=== PATIENT | female | born 1960 | race Caucasian/White ===

== ENCOUNTER → 2019-11-17 12:21 | Outpatient (CLI) | payer OTHER, SELFPAY ==
--- NOTE | ~2019-11-17 | MM_ITS ---
EXAMINATION: MM screening carmen BI w rajan HISTORY: Screening mammogram TECHNIQUE: Craniocaudal and mediolateral oblique 3-D tomosynthesis images were obtained and synthetic 2-D images were generated. CAD analysis was submitted and interpreted. COMPARISON: 10/02/2018, 09/29/2017, 09/26/2016 bilateral digital screening mammogram examinations BREAST PARENCHYMAL COMPOSITION: There are scattered areas of fibroglandular density. FINDINGS: Occasional benign calcifications. There is no evidence of suspicious mass, calcification, o r architectural distortion to suggest malignancy in either breast. There has been no suspicious inter suresh change. IMPRESSION: 1. No mammographic evidence of malignancy. 2. Recommend routine screening mammography in one year. BI-RADS Category 1: Negative Reviewed, dictated and finalized at location A.
--- NOTE | ~2019-11-17 | DEXA_ITS ---
Bone Density Report Name: Alexa Christopher Age: 59 Sex: Female Ethnicity: White Date of : 1960 Indication: postmenopausal; screening for osteoporosis; parental hip fracture; asthma or emphysema; Referring Provider: MADISON, SANDEE Study: Bone densitometry was performed. Exam Date: November 17, 2019 Accession number: [id number] Bone Density: Region BMD T-score Z-score Classification AP Spine (L1-L4) 1.065 0.2 1.6 Normal Femoral Neck (Left) 0.770 -0.7 0.6 Normal Total Hip (Left) 1.046 0.9 1.8 Normal Femoral Neck (Right) 0.778 -0.6 0.7 Normal Total Hip (Right) 1.021 0.6 1.6 Normal Total Hip Mean 1.034 0.8 1.7 Normal World Health Organization criteria for BMD impression classify patients as: Normal (T-score at or above -1.0), Osteopenia (T-score between -1.0 and -2.5), or Osteoporosis (T-score at or below -2.5). 10-year Fracture Risk: FRAX not reported because: All T-scores for Spine Total, Hip Total, Femoral Neck at or above -1.0 Previous Exams: Region Exam Age BMD T-score BMD Change BMD Change Date g/cm2 vs Baseline vs Previous AP Spine(L1-L4) 11/17/2019 59 1.065 0.2 -0.001 -0.026 09/24/2015 55 1.091 0.4 0.024 0.024 07/02/2013 53 1.067 0.2 Total Hip(Left) 11/17/2019 59 1.046 0.9 0.055* 0.032 09/24/2015 55 1.014 0.6 0.023 0.023 07/02/2013 53 0.991 0.4 Total Hip(Right) 11/17/2019 59 1.021 0.6 0.000 0.009 09/24/2015 55 1.012 0.6 -0.009 -0.009 07/02/2013 53 1.021 0.6 *Denotes significance at 95% confidence level, LSC for AP Spine = 0.022 g/cm2, LSC for Total Hip = 0.027 g/cm2 Clinical Information Provided by Patient: Parent has had a hip fracture Smokes Has used the following medications: Vitamin D, Calcium Has the following medical conditions: Asthma or Emphysema Patient maximum height was 62 Menopause Age: 48 No regular weight bearing exercise Drinks caffeinated beverages Onset of menses at age 12 Number of children 0 Impression: The patient has normal bone mass. The patient has risk factors, including: parental hip fracture, smoking. No significant bone loss was observed. Discussion: BONE DENSITY IS ABOVE THE MINIMUM DESIRABLE LEVEL AT ALL SKELETAL SITES TESTED. This patient?s bone mineral density is above the minimum desirable level (T-score -1.0 or better) a
== END ==
PROVIDERS: PCP Family Medicine; Visit Provider Nurse Practitioner
DX: Z12.31 Encounter for screening mammogram for malignant neoplasm of breast (principal); Z78.0 Asymptomatic menopausal state
CPT/HCPCS: 77063; 77067; 77080

== ENCOUNTER 2019-12-10 08:29 | Outpatient (CLI) | payer OTHER, SELFPAY ==
[2019-12-10 08:58] LABS: Hematocrit 45.2 % (37.0-47.0); Hemoglobin 14.9 g/dL (12.0-15.0); Mean Corpuscular Hemoglobin 29.6 pg (26-34); Mean Corpuscular Volume 89.9 fl (80-100); Mean Platelet Volume 11.5 fl (7.4-10.4); Platelet Count Result 285 k/mm3 (150-375); Red Blood Count 5.03 M/mm3 (4.2-5.4); Red Cell Distribution Width 14.3 % (11.5-14.5); White Blood Count 12.6 K/mm3 (4.5-10.0)
[2019-12-10 09:27] LABS: Hemoglobin A1C 6.9 % (<5.7)
[2019-12-10 09:41] LABS: Creatinine Urine 71.6 mg/dL
[2019-12-10 09:56] LABS: Vitamin D 25 Hydroxy 50.1 ng/mL
[2019-12-10 10:11] LABS: MALB Creatinine Ratio < 8.4 mg/g (0-30); Microalbumin Urine Random < 6.0 mg/L (0-16.7)
[2019-12-10 19:00] LABS: Alanine Aminotransferase 22 U/L (4-35); Albumin Level 3.4 g/dL (3.5-5.1); Alkaline Phosphatase 126 U/L (38-126); Anion Gap 2 mmol/L (8-16); Aspartate Amino Transferase 24 U/L (14-36); Bilirubin,Total 0.5 mg/dL (0.2-1.3); Blood Urea Nitrogen 12 mg/dL (7-17); Calcium 9.5 mg/dL (8.4-10.2); Carbon Dioxide 36 mmol/L (22-30); Chloride 97 mmol/L (98-107); Cholesterol 135 mg/dL (0-200); Estimated Glomerular Filt Rate > 60; Glucose 112 mg/dL (65-105); HDL Direct 35 mg/dL; Sodium 135 mmol/L (137-145); Triglycerides 121 mg/dL (<150)
[2019-12-10 19:11] LABS: LDL Cholesterol Direct 87 mg/dL
[2019-12-10 19:49] LABS: Vitamin B12 > 1000.0 pg/mL (239-931)
== END 2019-12-10 08:30 | disposition home or self-care (01) ==
PROVIDERS: PCP Family Medicine; Visit Provider Family Medicine
DX: E78.2 Mixed hyperlipidemia (principal); E11.9 Type 2 diabetes mellitus without complications; E03.9 Hypothyroidism, unspecified; E55.9 Vitamin D deficiency, unspecified; R53.83 Other fatigue; Z98.84 Bariatric surgery status
CPT/HCPCS: 36415; 80053; 80061; 82043; 82306; 82607; 83036; 84443; 85027

== ENCOUNTER 2020-02-07 02:07 | Outpatient (CLI) | payer OTHER, SELFPAY ==
[2020-02-07 22:41] LABS: SARS-CoV-2 RNA PCR Negative
== END 2020-02-07 02:08 | disposition home or self-care (01) ==
LOC: ANHCOVIDDT 02:07
PROVIDERS: PCP Family Medicine; Visit Provider Internal Medicine Gastroenterology
DX: Z01.812 Encounter for preprocedural laboratory examination (principal)
CPT/HCPCS: 87635; C9803; U0003

== ENCOUNTER 2020-02-10 00:56 | Day surgery (SDC) | payer OTHER, SELFPAY ==
[2020-02-03 15:11] VITALS: BMI 37.0
[2020-02-10 11:40] VITALS: BP 147/81; PULSE 82; RESP 16; TEMP 36.4; O2SAT 97
--- NOTE | 2020-02-10 11:40 | WPDANESEPPF ---
Anes - Initial Pre Proc Eval Procedure: Operation Date: 02/10/20 12:45 Proposed Procedures p Esophagogastroduodenoscopy & Screening Colonoscopy - Emory Snyder MD Date/Time: 02/10/20 11:40 Surgeon: Emory Snyder MD Pre Op Diagnosis: DYSPHAGIA,GERD, NEOPLASM SCREENING Patient Data Age: 59 Gender: F Height: 5 ft 1 in Weight: 90 kg Last Vital Signs Temp 36.4 C 02/10/20 11:40 Pulse 82 02/10/20 11:40 Resp 16 02/10/20 11:40 BP 147/81 H 02/10/20 11:40 Pulse Ox 97 02/10/20 11:40 Allergies Allergy/AdvReac Type Severity Reaction Status Date / Time cephalexin Allergy Mild Hives Verified 02/10/20 11:39 Home Medications Medication Instructions Recorded Confirmed Type levocetirizine 5 mg tablet 5 mg PO DAILY #90 tablet 05/02/19 02/03/20 Rx ergocalciferol (vitamin D2) 1,250 50,000 unit PO WEEKLY #12 cap 07/26/19 02/03/20 Rx mcg (50,000 unit) capsule clobetasol 0.05 % topical cream 1 applic TOPICAL BID #60 gm 09/22/19 02/03/20 Rx nortriptyline 10 mg capsule 10 mg PO DAILY #90 cap 10/18/19 02/03/20 Rx albuterol sulfate 90 mcg/actuation 1 inhalation INHALATION Q4H 11/02/19 02/03/20 History aerosol inhaler hydrocodone 5 mg-acetaminophen 325 1 tablet PO Q8H PRN #150 tablet 11/02/19 02/03/20 Rx mg tablet fluticasone furoate 200 1 inhalation INHALATION DAILY 11/21/19 02/03/20 History mcg-vilanterol 25 mcg/dose inhalation powder buspirone 15 mg tablet See Rx Instructions .ROUTE 12/27/19 02/03/20 Rx .COMPLEX #270 tablet simvastatin 10 mg tablet 10 mg PO DAILY #90 tablet 12/27/19 02/03/20 Rx trazodone 50 mg tablet 50 mg PO .HS #90 tablet 12/27/19 02/03/20 Rx duloxetine 30 mg capsule,delayed See Rx Instructions .ROUTE 01/04/20 02/03/20 Rx release .COMPLEX #270 cap omeprazole 40 mg capsule,delayed 40 mg PO BID #90 cap 01/08/20 02/03/20 Rx release canagliflozin 300 mg tablet 300 mg PO DAILY #90 tablet 01/09/20 02/03/20 Rx dulaglutide 0.75 mg/0.5 mL See Rx Instructions .ROUTE 01/10/20 02/03/20 Rx subcutaneous pen injector .COMPLEX #2 syringe baclofen 10 mg tablet See Rx Instructions .ROUTE 01/20/20 02/03/20 Rx .COMPLEX #360 tablet sertraline 50 mg tablet See Rx Instructions .ROUTE 01/29/20 02/03/20 Rx .COMPLEX #90 tablet triamterene 75 See Rx Instructions .ROUTE 01/30/20 02/03/20 Rx mg-hydrochlorothiazide 50 mg tablet .COMPLEX #90 tablet ferrous sulfate [Iron (ferrous 325 mg PO DAILY 02/03/20 02/03/20 History sulfate)] levothyroxine 25 mcg tablet 25 mcg PO DAILY #90 tablet 02/09/20 02/10/20 Rx montelukast 10 mg tablet 10 mg PO DAILY #90 tablet 02/09/20 02/10/20 Rx Patient hx anesthesia problems: none Family hx anesthesia problems: none PMFSH Past Medical History Medical History Allergic rhinitis Anxiety Asthma Chronic low back pain without sciatica Colon cancer screening Diverticulosis of large intestine without perforation or abscess Fibromyalgia GERD (gastroesophageal reflux disease) Hypogammaglobulinemia Hypokalemia Hypothyroidism Immunodeficiency Iron deficiency Low ferritin Mixed hyperlipidemia Moderate episode of recurrent major depressive disorder Obstructive sleep apnea syndrome Psoriasis Recurrent acute suppurative otitis media without spontaneous rupture of left tympanic membrane Tobacco consumption Type 2 diabetes mellitus without complication, without long-term current use of insulin (07/05/15) Vitamin B12 deficiency Vitamin D deficiency Surgical History Surgical History H/O gastric bypass Family History Family History Mother Immunodeficiency Social History Social History Years smoked: 45 Smoking status: Current every day smoker Tobacco type: cigarettes Second hand tobacco smoke exposure: No S
[2020-02-10] MEDS: LACTATED RINGERS 1,000 ML 150 ML IV CONT (11:58)
[2020-02-10 11:59] LABS: Glucose Point of Care 100 (65-105)
--- NOTE | 2020-02-10 12:05 | PM.HPGS ---
History of Present Illness History of Present Illness Consent: Risks, benefits, and alternatives have been discussed and questions answered. Patient agrees to proceed with procedure. Chief complaint: DYSPHAGIA,GERD, NEOPLASM SCREENING Narrative: Alexa Christopher is a 59 year old female with bloating and reflux on omeprazole bid, remote history of gastric bypass, also needs screening colonoscopy. Review of Systems Constitutional: Constitutional: Denies headache(s) and Denies weakness Eyes: Eyes: Denies blurry vision ENT: Reports Normal hearing present, Denies headache(s) and Denies neck pain Cardiovascular: Cardiovascular: Denies chest pain and Denies dyspnea Respiratory: Respiratory: Denies dyspnea Gastrointestinal: Gastrointestinal: Reports no additional gastrointestinal complaints Genitourinary: Genitourinary: Denies dysuria Musculoskeletal: Musculoskeletal: Denies neck pain Integumentary/Breasts: Skin/Breast: Denies dry skin Neurologic: Reports Normal hearing present, Denies headache(s) and Denies weakness Psychiatric: Psychiatric: Denies anxiety Endocrine: Endocrine: Denies change in body appearance Hematologic/Lymphatic: Hematologic/Lymphatic: Denies easy bleeding Allergic/Immunologic: Allergic/Immunologic: Denies urticaria PMFSH Past Medical History Medical History Allergic rhinitis Anxiety Asthma Chronic low back pain without sciatica Colon cancer screening Diverticulosis of large intestine without perforation or abscess Fibromyalgia GERD (gastroesophageal reflux disease) Hypogammaglobulinemia Hypokalemia Hypothyroidism Immunodeficiency Iron deficiency Low ferritin Mixed hyperlipidemia Moderate episode of recurrent major depressive disorder Obstructive sleep apnea syndrome Psoriasis Recurrent acute suppurative otitis media without spontaneous rupture of left tympanic membrane Tobacco consumption Type 2 diabetes mellitus without complication, without long-term current use of insulin (07/05/15) Vitamin B12 deficiency Vitamin D deficiency Surgical History Surgical History H/O gastric bypass Family History Family History Mother Immunodeficiency Social History Social History Years smoked: 45 Smoking status: Current every day smoker Tobacco type: cigarettes Second hand tobacco smoke exposure: No Smoking end date: 02/23/13 Alcohol intake: never Substance use type: does not use Living arrangements: with family Spiritual care concerns: No Meds Home Medications and Allergies Home Medications Medication Instructions Recorded Confirmed Type levocetirizine 5 mg tablet 5 mg PO DAILY #90 tablet 05/02/19 02/03/20 Rx ergocalciferol (vitamin D2) 1,250 50,000 unit PO WEEKLY #12 cap 07/26/19 02/03/20 Rx mcg (50,000 unit) capsule clobetasol 0.05 % topical cream 1 applic TOPICAL BID #60 gm 09/22/19 02/03/20 Rx nortriptyline 10 mg capsule 10 mg PO DAILY #90 cap 10/18/19 02/03/20 Rx albuterol sulfate 90 mcg/actuation 1 inhalation INHALATION Q4H 11/02/19 02/03/20 History aerosol inhaler hydrocodone 5 mg-acetaminophen 325 1 tablet PO Q8H PRN #150 tablet 11/02/19 02/03/20 Rx mg tablet fluticasone furoate 200 1 inhalation INHALATION DAILY 11/21/19 02/03/20 History mcg-vilanterol 25 mcg/dose inhalation powder buspirone 15 mg tablet See Rx Instructions .ROUTE 12/27/19 02/03/20 Rx .COMPLEX #270 tablet simvastatin 10 mg tablet 10 mg PO DAILY #90 tablet 12/27/19 02/03/20 Rx trazodone 50 mg tablet 50 mg PO .HS #90 tablet 12/27/19 02/03/20 Rx duloxetine 30 mg capsule,delayed See Rx Instructions .ROUTE 01/04/20 02/03/20 Rx release .COMPLEX #270 cap omeprazole 40 mg capsule,delayed 40 mg PO BID #90 cap 01/08/20 02/03/20 Rx release canagliflozin 300 mg ta
[2020-02-10 12:55] VITALS: BP 96/45; PULSE 72; RESP 20; O2SAT 98
[2020-02-10 13:05] VITALS: BP 95/41; PULSE 80; RESP 22; O2SAT 99
== END 2020-02-10 13:27 | disposition home or self-care (01) ==
PROVIDERS: PCP Family Medicine; Visit Provider Internal Medicine Gastroenterology
PROC: 0DJ08ZZ Inspection of Upper Intestinal Tract, Via Natural or Artificial Opening Endoscopic (ICD-10-PCS; CPT 43235; principal; 2020-02-10 12:45)
DX: Z12.11 Encounter for screening for malignant neoplasm of colon (principal); K21.9 Gastro-esophageal reflux disease without esophagitis; K29.50 Unspecified chronic gastritis without bleeding; K64.8 Other hemorrhoids; R13.10 Dysphagia, unspecified; K44.9 Diaphragmatic hernia without obstruction or gangrene; K31.89 Other diseases of stomach and duodenum; Z79.51 Long term (current) use of inhaled steroids; F41.9 Anxiety disorder, unspecified; E03.9 Hypothyroidism, unspecified; K57.30 Diverticulosis of large intestine without perforation or abscess without bleeding; D80.1 Nonfamilial hypogammaglobulinemia; E87.6 Hypokalemia; D84.9 Immunodeficiency, unspecified; E61.1 Iron deficiency; F32.9 Major depressive disorder, single episode, unspecified; G47.33 Obstructive sleep apnea (adult) (pediatric); L40.9 Psoriasis, unspecified; E11.9 Type 2 diabetes mellitus without complications; Z79.4 Long term (current) use of insulin; J45.909 Unspecified asthma, uncomplicated; M79.7 Fibromyalgia; E66.9 Obesity, unspecified; Z68.37 Body mass index [BMI] 37.0-37.9, adult
CPT/HCPCS: 43239; 45378; 87635; 88305; C9803; J2704; J7120; U0003

== ENCOUNTER 2020-08-11 07:25 | Outpatient (CLI) | payer OTHER, SELFPAY ==
[2020-08-11 08:16] LABS: Hematocrit 47.8 % (37.0-47.0); Hemoglobin 15.3 g/dL (12.0-15.0); Mean Corpuscular Hemoglobin 29.1 pg (26-34); Mean Corpuscular Volume 90.9 fl (80-100); Mean Platelet Volume 11.7 fl (7.4-10.4); Platelet Count Result 289 k/mm3 (150-375); Red Blood Count 5.26 M/mm3 (4.2-5.4); Red Cell Distribution Width 14.1 % (11.5-14.5); White Blood Count 9.7 K/mm3 (4.5-10.0)
[2020-08-11 08:25] LABS: Alanine Aminotransferase 53 U/L (4-35); Albumin Level 4.2 g/dL (3.5-5.1); Alkaline Phosphatase 138 U/L (38-126); Anion Gap 5 mmol/L (8-16); Aspartate Amino Transferase 44 U/L (14-36); Bilirubin,Total 0.4 mg/dL (0.2-1.3); Blood Urea Nitrogen 11 mg/dL (7-17); Calcium 9.4 mg/dL (8.4-10.2); Carbon Dioxide 33 mmol/L (22-30); Chloride 101 mmol/L (98-107); Cholesterol 175 mg/dL (0-200); Estimated Glomerular Filt Rate > 60; Glucose 133 mg/dL (65-105); HDL Direct 45 mg/dL; Potassium 3.2 mmol/L (3.4-5.0); Sodium 139 mmol/L (137-145); Triglycerides 159 mg/dL (<150)
[2020-08-11 08:30] LABS: Immunoglobulin G 1054 mg/dL (700-1600)
[2020-08-11 08:35] LABS: LDL Cholesterol Direct 93 mg/dL
[2020-08-11 08:38] LABS: Hemoglobin A1C 7.1 % (<5.7)
[2020-08-11 08:59] LABS: Iron 83 ug/dL (37-170); Percent Iron Saturation 27 % (20-50)
[2020-08-11 09:22] LABS: Vitamin B12 > 1000.0 pg/mL (239-931)
[2020-08-11 12:22] LABS: Vitamin D 25 Hydroxy 47.2 ng/mL
== END 2020-08-11 07:26 | disposition home or self-care (01) ==
PROVIDERS: PCP Family Medicine; Visit Provider Family Medicine
DX: E61.1 Iron deficiency (principal); D83.9 Common variable immunodeficiency, unspecified; E53.8 Deficiency of other specified B group vitamins; E03.9 Hypothyroidism, unspecified; E78.2 Mixed hyperlipidemia; E11.9 Type 2 diabetes mellitus without complications; E55.9 Vitamin D deficiency, unspecified; E87.6 Hypokalemia
CPT/HCPCS: 36415; 80053; 80061; 82306; 82607; 82728; 82784; 83036; 83540; 83550; 84443; 85027

== ENCOUNTER → 2020-12-14 15:32 | Outpatient (CLI) | payer OTHER, SELFPAY ==
--- NOTE | ~2020-12-14 | MM_ITS ---
EXAMINATION: MM screening carmen BI w rajan HISTORY: Screening mammogram TECHNIQUE: Craniocaudal and mediolateral oblique 3-D tomosynthesis images were obtained and synthetic 2-D images were generated. CAD analysis was submitted and interpreted. COMPARISON: 11/13/2019, 10/02/2018, 09/29/2017 bilateral digital screening mammogram examinations BREAST PARENCHYMAL COMPOSITION: There are scattered areas of fibroglandular density. FINDINGS: There is no evidence of suspicious mass, calcification, or architectural distortion to sugg est malignancy in either breast. There has been no suspicious interval change. IMPRESSION: 1. No mammographic evidence of malignancy. 2. Recommend routine screening mammography in one year. BI-RADS Category 1: Negative Reviewed, dictated and finalized at location A.
== END ==
PROVIDERS: PCP Family Medicine; Visit Provider Nurse Practitioner
DX: Z12.31 Encounter for screening mammogram for malignant neoplasm of breast (principal)
CPT/HCPCS: 77063; 77067

== ENCOUNTER 2020-12-21 07:05 | Outpatient (CLI) | payer OTHER, SELFPAY ==
[2020-12-21 07:42] LABS: Hematocrit 44.3 % (37.0-47.0); Hemoglobin 14.2 g/dL (12.0-15.0); Mean Corpuscular HGB Conc 32.1 g/dl (32-36); Mean Corpuscular Hemoglobin 29.2 pg (26-34); Mean Corpuscular Volume 91.2 fl (80-100); Mean Platelet Volume 11.8 fl (7.4-10.4); Platelet Count Result 301 k/mm3 (150-375); Red Blood Count 4.86 M/mm3 (4.2-5.4); Red Cell Distribution Width 14.2 % (11.5-14.5); White Blood Count 10.1 K/mm3 (4.5-10.0)
[2020-12-21 07:53] LABS: Hemoglobin A1C 8.5 % (<5.7)
[2020-12-21 07:58] LABS: Iron 51 ug/dL (37-170)
[2020-12-21 08:00] LABS: Alanine Aminotransferase 53 U/L (4-35); Albumin Level 4.1 g/dL (3.5-5.1); Alkaline Phosphatase 142 U/L (38-126); Anion Gap 7 mmol/L (8-16); Aspartate Amino Transferase 33 U/L (14-36); Bilirubin,Total 0.5 mg/dL (0.2-1.3); Blood Urea Nitrogen 15 mg/dL (7-17); Calcium 9.2 mg/dL (8.4-10.2); Carbon Dioxide 30 mmol/L (22-30); Chloride 100 mmol/L (98-107); Estimated Glomerular Filt Rate > 60; Glucose 164 mg/dL (65-110); Potassium 3.4 mmol/L (3.4-5.0); Sodium 137 mmol/L (137-145)
[2020-12-21 08:12] LABS: Percent Iron Saturation 16 % (20-50)
== END 2020-12-21 07:06 | disposition home or self-care (01) ==
LOC: ANHLAB 07:07
PROVIDERS: PCP Family Medicine; Visit Provider Family Medicine
DX: D58.2 Other hemoglobinopathies (principal); E11.9 Type 2 diabetes mellitus without complications; R74.8 Abnormal levels of other serum enzymes; R79.0 Abnormal level of blood mineral
CPT/HCPCS: 36415; 80048; 80076; 82728; 83036; 83540; 83550; 85027

== ENCOUNTER 2021-06-06 07:19 | Outpatient (CLI) | payer OTHER, SELFPAY ==
[2021-06-06 07:35] LABS: Hematocrit 45.7 % (37.0-47.0); Hemoglobin 14.3 g/dL (12.0-15.0); Mean Corpuscular HGB Conc 31.3 g/dl (32-36); Mean Corpuscular Hemoglobin 28.1 pg (26-34); Mean Corpuscular Volume 89.8 fl (80-100); Mean Platelet Volume 11.1 fl (7.4-10.4); Platelet Count Result 302 k/mm3 (150-375); Red Blood Count 5.09 M/mm3 (4.2-5.4); White Blood Count 10.2 K/mm3 (4.5-10.0)
[2021-06-06 07:46] LABS: Alanine Aminotransferase 57 U/L (4-35); Albumin Level 4.2 g/dL (3.5-5.1); Alkaline Phosphatase 136 U/L (38-126); Anion Gap 9 mmol/L (8-16); Aspartate Amino Transferase 43 U/L (14-36); Bilirubin,Total 0.4 mg/dL (0.2-1.3); Blood Urea Nitrogen 14 mg/dL (7-17); Calcium 8.7 mg/dL (8.4-10.2); Carbon Dioxide 28 mmol/L (22-30); Chloride 98 mmol/L (98-107); Cholesterol 170 mg/dL (0-200); Estimated Glomerular Filt Rate > 60; Glucose 164 mg/dL (65-110); HDL Direct 46 mg/dL; Potassium 3.3 mmol/L (3.4-5.0); Sodium 135 mmol/L (137-145); Triglycerides 117 mg/dL (<150)
[2021-06-06 07:59] LABS: LDL Cholesterol Direct 94 mg/dL
[2021-06-06 08:47] LABS: Iron 74 ug/dL (37-170)
[2021-06-06 08:56] LABS: Hemoglobin A1C 7.4 % (<5.7); Percent Iron Saturation 23 % (20-50)
[2021-06-06 09:18] LABS: Vitamin B12 > 1000.0 pg/mL (239-931)
[2021-06-06 10:26] LABS: Vitamin D 25 Hydroxy 38.6 ng/mL
== END 2021-06-06 07:20 | disposition home or self-care (01) ==
LOC: ANHLAB 07:21
PROVIDERS: PCP Family Medicine; Referring Provider Obstetrics & Gynecology Gynecology; Visit Provider Family Medicine
DX: D83.1 Common variable immunodeficiency with predominant immunoregulatory T-cell disorders (principal); Z98.84 Bariatric surgery status; E11.9 Type 2 diabetes mellitus without complications; E78.2 Mixed hyperlipidemia; E03.9 Hypothyroidism, unspecified; R53.83 Other fatigue; E61.1 Iron deficiency; E55.9 Vitamin D deficiency, unspecified
CPT/HCPCS: 36415; 80053; 80061; 82306; 82607; 82728; 83036; 83540; 83550; 84443; 85027

== ENCOUNTER 2021-09-12 12:16 | Outpatient (CLI) | payer OTHER, SELFPAY ==
[2021-09-12 13:02] LABS: Anion Gap 10 mmol/L (8-16); Blood Urea Nitrogen 14 mg/dL (7-17); Calcium 9.2 mg/dL (8.4-10.2); Carbon Dioxide 26 mmol/L (22-30); Chloride 99 mmol/L (98-107); Estimated Glomerular Filt Rate > 60; Glucose 218 mg/dL (65-110); Potassium 3.7 mmol/L (3.4-5.0); Sodium 135 mmol/L (137-145)
== END 2021-09-12 12:17 | disposition home or self-care (01) ==
LOC: ANHLAB 12:17
PROVIDERS: PCP Family Medicine; Visit Provider Family Medicine
DX: E87.6 Hypokalemia (principal)
CPT/HCPCS: 36415; 80048

== ENCOUNTER → 2021-09-27 15:13 | Outpatient (CLI) | payer OTHER, SELFPAY ==
--- NOTE | ~2021-09-27 | US_ITS ---
EXAMINATION: US pelvic complete DATE: 09/27/2021 15:31 INDICATION: Allergic and peroneal pain. Previous salpingectomy bilaterally. Postmenopausal. Comparison:No prior studies for comparison. TECHNIQUE: Multiple transabdominal sonographic images of the pelvis performed. FINDINGS: The uterus measures 5.6 x 2.2 x 3.3 cm. The endometrial complex measures 3 mm. The ovaries are surgically absent. There is no free fluid in the pelvis. There are no abnormal masses seen on either side. IMPRESSION: 1. Unremarkable pelvic ultrasound. Reviewed, dictated and finalized at location A.
== END ==
PROVIDERS: PCP Family Medicine; Visit Provider Nurse Practitioner
DX: R10.2 Pelvic and perineal pain (principal)
CPT/HCPCS: 76856

== ENCOUNTER 2021-12-14 07:31 | Outpatient (CLI) | payer OTHER, SELFPAY ==
[2021-12-14 07:52] LABS: Basophils Percent Auto 0.3 % (0.2-1.2); Eosinophils Absolute Auto 0.1 K/mm3 (0-0.3); Eosinophils Percent Auto 0.5 % (0-4.4); Hematocrit 43.9 % (37.0-47.0); Hemoglobin 14.4 g/dL (12.0-15.0); Immature Granulocyte Absolute 0.07 K/mm3 (0.00-0.031); Immature Granulocyte Percent A 0.5 % (0-0.5); Lymphocytes Absolute Auto 4.33 K/mm3 (0.9-3.2); Lymphocytes Percent Auto 29.3 % (18.3-44.2); Mean Corpuscular HGB Conc 32.8 g/dl (32-36); Mean Corpuscular Hemoglobin 28.7 pg (26-34); Mean Corpuscular Volume 87.5 fl (80-100); Mean Platelet Volume 10.9 fl (7.4-10.4); Monocytes Absolute Auto 0.8 K/mm3 (0.1-0.6); Monocytes Percent Auto 5.6 % (2.6-8.5); Neutrophils Absolute Auto 9.4 K/mm3 (1.3-6.7); Neutrophils Percent Auto 63.8 % (45.5-73.1); Platelet Count Result 389 k/mm3 (150-375); Red Blood Count 5.02 M/mm3 (4.2-5.4); Red Cell Distribution Width 15.2 % (11.5-14.5); White Blood Count 14.8 K/mm3 (4.5-10.0)
[2021-12-14 08:00] LABS: Alanine Aminotransferase 75 U/L (6-35); Albumin Level 4.1 g/dL (3.5-5.1); Alkaline Phosphatase 123 U/L (38-126); Anion Gap 9 mmol/L (8-16); Aspartate Amino Transferase 83 U/L (14-36); Bilirubin,Total 0.6 mg/dL (0.2-1.3); Blood Urea Nitrogen 19 mg/dL (7-17); Calcium 8.9 mg/dL (8.4-10.2); Carbon Dioxide 31 mmol/L (22-30); Chloride 97 mmol/L (98-107); Cholesterol 176 mg/dL (0-200); Estimated Glomerular Filt Rate > 60; Glucose 176 mg/dL (65-110); HDL Direct 46 mg/dL; Potassium 3.4 mmol/L (3.4-5.0); Sodium 137 mmol/L (137-145); Triglycerides 261 mg/dL (<150)
[2021-12-14 08:11] LABS: LDL Cholesterol Direct 90 mg/dL
[2021-12-14 09:17] LABS: Creatinine Urine 135.2 mg/dL
[2021-12-14 09:43] LABS: Iron 118 ug/dL (37-170)
[2021-12-14 09:53] LABS: Percent Iron Saturation 35 % (20-50)
[2021-12-14 09:58] LABS: Vitamin D 25 Hydroxy 37.6 ng/mL
[2021-12-14 10:48] LABS: Free T4 Free Thyroxine Reflex 1.35 ng/dL (0.78-2.19)
[2021-12-14 11:36] LABS: Total Triiodothyronine (T3) 1.07 NG/ML (0.97-1.69)
== END 2021-12-14 07:32 | disposition home or self-care (01) ==
LOC: ANHLAB 07:33
PROVIDERS: PCP Family Medicine; Visit Provider Family Medicine
DX: E61.1 Iron deficiency (principal); R53.83 Other fatigue; E11.9 Type 2 diabetes mellitus without complications; E78.2 Mixed hyperlipidemia; E55.9 Vitamin D deficiency, unspecified
CPT/HCPCS: 36415; 80053; 80061; 82043; 82306; 82728; 83036; 83540; 83550; 84439; 84443; 84480; 85025

== ENCOUNTER → 2021-12-16 14:55 | Outpatient (CLI) | payer OTHER, SELFPAY ==
--- NOTE | ~2021-12-16 | MM_ITS ---
EXAMINATION: MM screening carmen BI w rajan HISTORY: Screening mammogram TECHNIQUE: Craniocaudal and mediolateral oblique 3-D tomosynthesis images were obtained and synthetic 2-D images were generated. CAD analysis was submitted and interpreted. COMPARISON: 12/14/2020, 11/17/2019, 10/02/2018 BREAST PARENCHYMAL COMPOSITION: There are scattered areas of fibroglandular density. FINDINGS: Scattered benign-appearing calcifications are present. No suspicious mass, calcification, o r architectural distortion are identified in either breast to suggest malignancy. There has been no s uspicious interval change. IMPRESSION: 1. No mammographic evidence of malignancy. 2. Recommend routine screening mammography in one year. BI-RADS Category 2: Benign finding(s). Reviewed, dictated and finalized at location A.
== END ==
PROVIDERS: PCP Family Medicine; Visit Provider Nurse Practitioner
DX: Z12.31 Encounter for screening mammogram for malignant neoplasm of breast (principal)
CPT/HCPCS: 77063; 77067

== ENCOUNTER 2022-08-23 07:07 | Outpatient (CLI) | payer OTHER, SELFPAY ==
[2022-08-23 08:12] LABS: Alanine Aminotransferase 27 U/L (6-35); Albumin Level 4.3 g/dL (3.5-5.1); Alkaline Phosphatase 153 U/L (38-126); Anion Gap 6 mmol/L (8-16); Aspartate Amino Transferase 29 U/L (14-36); Bilirubin,Total 0.5 mg/dL (0.2-1.3); Blood Urea Nitrogen 14 mg/dL (7-17); Calcium 9.6 mg/dL (8.4-10.2); Carbon Dioxide 32 mmol/L (22-30); Chloride 100 mmol/L (98-107); Cholesterol 185 mg/dL (0-200); Estimated Glomerular Filt Rate > 60; Glucose 150 mg/dL (65-110); HDL Direct 44 mg/dL; Potassium 3.7 mmol/L (3.4-5.0); Sodium 138 mmol/L (137-145); Triglycerides 145 mg/dL (<150)
[2022-08-23 08:17] LABS: Iron 84 ug/dL (37-170)
[2022-08-23 08:18] LABS: Rheumatoid Factor < 12.0 IU/ML (<12)
[2022-08-23 08:23] LABS: LDL Cholesterol Direct 117 mg/dL
[2022-08-23 08:27] LABS: Hemoglobin A1C 7.4 % (<5.7); Percent Iron Saturation 25 % (20-50)
[2022-08-23 08:31] LABS: Basophils Percent Auto 0.2 % (0.2-1.2); Eosinophils Percent Auto 0.1 % (0-4.4); Hematocrit 44.2 % (37.0-47.0); Hemoglobin 14.2 g/dL (12.0-15.0); Immature Granulocyte Percent A 0.7 % (0-0.5); Lymphocytes Absolute Auto 2.63 K/mm3 (0.9-3.2); Lymphocytes Percent Auto 17.6 % (18.3-44.2); Mean Corpuscular HGB Conc 32.1 g/dl (32-36); Mean Corpuscular Hemoglobin 28.5 pg (26-34); Mean Corpuscular Volume 88.6 fl (80-100); Mean Platelet Volume 12.3 fl (7.4-10.4); Monocytes Absolute Auto 0.7 K/mm3 (0.1-0.6); Monocytes Percent Auto 4.8 % (2.6-8.5); Neutrophils Absolute Auto 11.5 K/mm3 (1.3-6.7); Neutrophils Percent Auto 76.6 % (45.5-73.1); Platelet Count Result 400 k/mm3 (150-375); Red Blood Count 4.99 M/mm3 (4.2-5.4); Red Cell Distribution Width 15.2 % (11.5-14.5); White Blood Count 14.9 K/mm3 (4.5-10.0)
[2022-08-23 08:43] LABS: Vitamin D 25 Hydroxy 46.4 ng/mL
[2022-08-23 08:49] LABS: Thyroid Stimulating Hormone Reflex 0.868 uIU/mL (0.465-4.68)
== END 2022-08-23 07:08 | disposition home or self-care (01) ==
LOC: ANHLAB 07:08
PROVIDERS: PCP Family Medicine; Visit Provider Family Medicine
DX: E03.9 Hypothyroidism, unspecified (principal); D72.829 Elevated white blood cell count, unspecified; E55.9 Vitamin D deficiency, unspecified; E61.1 Iron deficiency; Z98.84 Bariatric surgery status; M25.50 Pain in unspecified joint; E78.2 Mixed hyperlipidemia; E11.9 Type 2 diabetes mellitus without complications; E53.8 Deficiency of other specified B group vitamins
CPT/HCPCS: 36415; 80053; 80061; 82306; 82607; 82728; 82784; 83036; 83540; 83550; 84443; 85025; 86038; 86430

== ENCOUNTER 2022-08-23 07:10 | Outpatient (CLI) | payer OTHER, SELFPAY ==
[2022-08-23 08:21] LABS: Immunoglobulin G 1131 mg/dL (700-1600)
== END 2022-08-23 07:11 | disposition home or self-care (01) ==
PROVIDERS: PCP Family Medicine
DX: D83.9 Common variable immunodeficiency, unspecified (principal)
CPT/HCPCS: 36415; 82784

== ENCOUNTER → 2023-01-23 14:53 | Outpatient (CLI) | payer OTHER, SELFPAY ==
--- NOTE | ~2023-01-23 | MM_ITS ---
EXAMINATION: MM screening carmen BI w rajan HISTORY: Screening mammogram TECHNIQUE: Craniocaudal and mediolateral oblique 3-D tomosynthesis images were obtained and synthetic 2-D images were generated. CAD analysis was submitted and interpreted. COMPARISON: 12/12/2021, 12/14/2020, 11/13/2019 lateral screening mammogram examinations BREAST PARENCHYMAL COMPOSITION: There are scattered areas of fibroglandular density. FINDINGS: There is no evidence of suspicious mass, calcification, or architectural distortion to sugg est malignancy in either breast. There has been no suspicious interval change. IMPRESSION: 1. No mammographic evidence of malignancy. 2. Recommend routine screening mammography in one year. BI-RADS Category 1: Negative Reviewed, dictated and finalized at location A. [employer]
== END ==
PROVIDERS: PCP Nurse Practitioner; Visit Provider Nurse Practitioner
DX: Z12.31 Encounter for screening mammogram for malignant neoplasm of breast (principal)
CPT/HCPCS: 77063; 77067

== ENCOUNTER 2023-05-16 08:00 | Outpatient (CLI) | payer OTHER, SELFPAY ==
--- NOTE | ~2023-05-16 | US_ITS ---
US abdomen complete EXAMINATION: US Abdomen Complete INDICATION: Left upper quadrant pain and swelling PROCEDURE: Realtime High Resolution abdomen ultrasound. COMPARISON: No prior studies for comparison FINDINGS: Gallbladder is surgically absent. Common bile duct measures 5 mm. Liver echotexture is increased, consistent with fatty infiltration.. Pancreas within normal limits. Pancreatic tail is obscured by bowel gas. Spleen is unremarkeable. Renal echotexture is within norm al limits bilaterally without hydronephrosis, contour deforming mass. In the upper pole of the left k [place]ney there is an echogenic focus measuring 1.6 cm, suspicious for nonobstructing nephrolithiasis. Ri ght kidney measures 10.6 cm. Left kidney measures 10.3 cm. Visualized aspects of the aorta and IVC are within normal limits. Portal vein is patent. No sonograph ic Starr's sign indicated by the technologist. In the area of palpable concern in the left upper abdomen there is an isoechoic parallel oriented enc apsulated mass measuring 1.6 x 1.7 x 0.8 cm without posterior features. There is marginal vascularity . IMPRESSION: 1: Encapsulated vascular mass measuring up to 1.7 cm in the area palpable concern. Consider ultrasoun d-guided percutaneous biopsy. 2: Possible nonobstructing left nephrolithiasis. 3: Hepatic steatosis. Reviewed, dictated and finalized at location A. IMPRESSION: 1: Encapsulated vascular mass measuring up to 1.7 cm in the area palpable deni rn. Consider ultrasound-guided percutaneous biopsy. 2: Possible nonobstructing left nephrolithiasis. 3: Hepatic steatosis.
== END 2023-05-16 08:01 ==
LOC: MICIMG 08:01
PROVIDERS: PCP Family Medicine; Visit Provider Family Medicine
DX: R19.02 Left upper quadrant abdominal swelling, mass and lump (principal); K76.0 Fatty (change of) liver, not elsewhere classified
CPT/HCPCS: 76700

== ENCOUNTER 2023-05-16 09:06 | Outpatient (CLI) | payer OTHER, SELFPAY ==
[2023-05-16 10:06] LABS: Basophils Absolute Auto 0.1 K/mm3 (0.0-0.1); Basophils Percent Auto 0.6 % (0.2-1.2); Eosinophils Absolute Auto 0.2 K/mm3 (0-0.3); Eosinophils Percent Auto 1.5 % (0-4.4); Hematocrit 46.8 % (37.0-47.0); Hemoglobin 14.6 g/dL (12.0-15.0); Immature Granulocyte Absolute 0.04 K/mm3 (0.00-0.031); Immature Granulocyte Percent A 0.4 % (0-0.5); Lymphocytes Absolute Auto 2.94 K/mm3 (0.9-3.2); Mean Corpuscular HGB Conc 31.2 g/dl (32-36); Mean Corpuscular Volume 89.7 fl (80-100); Mean Platelet Volume 12.4 fl (7.4-10.4); Monocytes Absolute Auto 0.7 K/mm3 (0.1-0.6); Monocytes Percent Auto 6.9 % (2.6-8.5); Neutrophils Absolute Auto 6.3 K/mm3 (1.3-6.7); Neutrophils Percent Auto 61.6 % (45.5-73.1); Platelet Count Result 308 k/mm3 (150-375); Red Blood Count 5.22 M/mm3 (4.2-5.4); Red Cell Distribution Width 14.9 % (11.5-14.5); White Blood Count 10.2 K/mm3 (4.5-10.0)
[2023-05-16 10:23] LABS: Alanine Aminotransferase 27 U/L (6-35); Albumin Level 4.2 g/dL (3.5-5.1); Alkaline Phosphatase 150 U/L (38-126); Anion Gap 1 mmol/L (8-16); Aspartate Amino Transferase 29 U/L (14-36); Bilirubin,Total 0.5 mg/dL (0.2-1.3); Blood Urea Nitrogen 16 mg/dL (7-17); Calcium 9.6 mg/dL (8.4-10.2); Carbon Dioxide 34 mmol/L (22-30); Chloride 102 mmol/L (98-107); Cholesterol 174 mg/dL (0-200); Estimated Glomerular Filt Rate > 60; Glucose 92 mg/dL (65-110); HDL Direct 37 mg/dL; Potassium 3.6 mmol/L (3.4-5.0); Sodium 137 mmol/L (137-145); Triglycerides 126 mg/dL (<150)
[2023-05-16 10:34] LABS: LDL Cholesterol Direct 109 mg/dL
[2023-05-16 11:17] LABS: Vitamin B12 > 1000.0 pg/mL (239-931)
[2023-05-16 11:49] LABS: Creatinine Urine 148.6 mg/dL
[2023-05-16 11:51] LABS: MALB Creatinine Ratio 15.2 mg/g (0-30); Microalbumin Urine Random 22.6 mg/L (0-16.7)
[2023-05-16 12:01] LABS: Iron 68 ug/dL (37-170)
[2023-05-16 12:05] LABS: Vitamin D 25 Hydroxy 89.7 ng/mL
[2023-05-16 12:12] LABS: Percent Iron Saturation 22 % (20-50)
[2023-05-16 15:48] LABS: Hemoglobin A1C 5.8 % (<5.7)
== END 2023-05-16 09:07 | disposition home or self-care (01) ==
PROVIDERS: PCP Family Medicine; Visit Provider Family Medicine
DX: E11.9 Type 2 diabetes mellitus without complications (principal); E55.9 Vitamin D deficiency, unspecified; E03.9 Hypothyroidism, unspecified; E78.2 Mixed hyperlipidemia; R53.83 Other fatigue; E53.8 Deficiency of other specified B group vitamins; E61.1 Iron deficiency
CPT/HCPCS: 36415; 80053; 80061; 82043; 82306; 82607; 82728; 83036; 83540; 83550; 84443; 85025

== ENCOUNTER 2023-06-22 17:00 | Outpatient (CLI) | payer OTHER, SELFPAY ==
--- NOTE | ~2023-06-22 | XR_ITS ---
Clinical Indication: Wheezing PA and lateral views of the chest: Comparison: 09/06/2012 Findings: The lungs are clear, without evidence of focal consolidation or pleural effusion. Cardiome diastinal silhouette is within normal limits. Bones and soft tissues are unremarkable. Impression: Normal chest. Reviewed, dictated and finalized at [facility]. Impression: Normal chest.
--- NOTE | ~2023-06-22 | XR_ITS ---
Thoracic spine: Clinical Indication: Back pain AP and lateral views were performed. No fracture is seen. There is normal alignment of the vertebrae. The intervertebral disc spaces appe ar normal. Paravertebral soft tissues appear normal. Impression: No significant abnormalities noted. Reviewed, dictated and finalized at [facility]. Impression: No significant abnormalities noted.
[2023-06-22 17:20] LABS: Basophils Absolute Auto 0.1 K/mm3 (0.0-0.1); Basophils Percent Auto 0.5 % (0.2-1.2); Eosinophils Absolute Auto 0.2 K/mm3 (0-0.3); Eosinophils Percent Auto 1.5 % (0-4.4); Hematocrit 48.3 % (37.0-47.0); Hemoglobin 15.3 g/dL (12.0-15.0); Immature Granulocyte Absolute 0.04 K/mm3 (0.00-0.031); Immature Granulocyte Percent A 0.4 % (0-0.5); Lymphocytes Absolute Auto 3.64 K/mm3 (0.9-3.2); Lymphocytes Percent Auto 35.4 % (18.3-44.2); Mean Corpuscular HGB Conc 31.7 g/dl (32-36); Mean Corpuscular Hemoglobin 27.8 pg (26-34); Mean Corpuscular Volume 87.8 fl (80-100); Mean Platelet Volume 10.9 fl (7.4-10.4); Monocytes Absolute Auto 0.6 K/mm3 (0.1-0.6); Monocytes Percent Auto 5.8 % (2.6-8.5); Neutrophils Absolute Auto 5.8 K/mm3 (1.3-6.7); Neutrophils Percent Auto 56.4 % (45.5-73.1); Platelet Count Result 440 k/mm3 (150-375); Red Cell Distribution Width 16.3 % (11.5-14.5); White Blood Count 10.3 K/mm3 (4.5-10.0)
[2023-06-22 17:32] LABS: Alanine Aminotransferase 34 U/L (6-35); Albumin Level 4.5 g/dL (3.5-5.1); Alkaline Phosphatase 172 U/L (38-126); Anion Gap 7 mmol/L (4-12); Aspartate Amino Transferase 36 U/L (14-36); Bilirubin,Total 0.5 mg/dL (0.2-1.3); Blood Urea Nitrogen 14 mg/dL (7-17); Carbon Dioxide 27 mmol/L (22-30); Chloride 102 mmol/L (98-107); Estimated Glomerular Filt Rate > 60; Glucose 98 mg/dL (65-110); Lipase 54 U/L (23-300); Potassium 3.8 mmol/L (3.4-5.0); Sodium 136 mmol/L (137-145)
[2023-06-22 17:43] LABS: Iron 58 ug/dL (37-170)
[2023-06-22 17:51] LABS: Percent Iron Saturation 18 % (20-50)
[2023-06-22 18:21] LABS: D Dimer 0.44 ug/mL (<0.48)
== END 2023-06-22 17:01 | disposition home or self-care (01) ==
LOC: ANHLAB 17:02
PROVIDERS: PCP Family Medicine; Visit Provider Family Medicine
DX: R10.13 Epigastric pain (principal); E11.9 Type 2 diabetes mellitus without complications; R07.81 Pleurodynia; R06.2 Wheezing; R07.9 Chest pain, unspecified; M54.6 Pain in thoracic spine
CPT/HCPCS: 36415; 71046; 72072; 80053; 82728; 83540; 83550; 83690; 85025; 85380

== ENCOUNTER 2023-06-26 12:52 | Inpatient (IN) | payer OTHER, SELFPAY ==
--- NOTE | ~2023-06-26 | XR_ITS ---
XR chest 2V INDICATION: Chest pain TECHNIQUE: 2 view chest. FINDINGS: Comparison dated 06/22/2023 There is mild bilateral interstitial prominence and peribronchial cuffing. There is no focal consoli dation, pleural effusion, or pneumothorax. The cardiomediastinal silhouette is normal. IMPRESSION: 1. Findings most consistent with bronchiolitis versus an atypical or viral pneumonia. Reviewed, dictated and finalized at location B. IMPRESSION: 1. Findings most consistent with bronchiolitis versus an atypical or viral pne [facility].
--- NOTE | ~2023-06-26 | MR_ITS ---
EXAMINATION: MR MRCP wo/w con/w 3D wo ind DATE: 06/27/2023 10:22 INDICATION: Possible portal vein thrombosis TECHNIQUE: Magnetic resonance imaging (MRI) of the abdomen was performed without and with 15 mL Multi donnie intravenous contrast. Sequences included coronal T2-weighted SS-FSE, coronal T2-weighted FS SS- FSE, coronal T2-weighted FS FIESTA, axial T2-weighted FS FIESTA, axial T2-weighted FIESTA, sagittal T 2-weighted SS-FSE, axial T1-weighted dual-echo FSPGR, axial T2-weighted SS-FSE, axial T1-weighted LAV A, axial T2-weighted STIR FSE. Thick-slab T2-weighted FRFSE-XL images were obtained for magnetic reso nance cholangiopancreatography (MRCP). Rotating maximum intensity projection 3-D reconstructions of t he volumetric data were created by the technologist. Postcontrast sequences included a time course of axial T1-weighted LAVA. COMPARISON: CT dated 06/26/2023 FINDINGS: ABDOMEN MRI: Heart size is normal. No pericardial or pleural effusion. Streaky increased signal in the dependent r ight lower lobe which could represent atelectasis or pneumonia. Small sliding-type hiatal hernia and changes of prior Scarlet-en-Y gastric bypass procedure. There is also been a prior cholecystectomy. Sple en, pancreas and bilateral adrenal glands are normal. 6 mm T2 hyperintense nonenhancing right renal c yst. Low signal intensity filling defect in an upper pole calyx of the left kidney corresponding to t he 12 mm stone seen on prior CT. Diverticulosis along the descending and visualized sigmoid colon wit hout adjacent inflammatory change to suggest diverticulitis. Small region of hepatic steatosis at the ligamentum teres with signal dropout on opposed phase imaging. Again seen is a geographic region of transient hepatic attenuation difference on the arterial phase of imaging primarily in segment 2 of l iver which normalized to the surrounding liver on the more delayed imaging. The branching pattern of decreased attenuation on the prior CT appears to correspond to branches of the left hepatic vein pres ently not opacified at the time of the CT imaging due to the phase of contrast but which enhance with contrast on the current study. There is no portal venous thrombosis. No other hepatic lesions identi fied. ABDOMEN MRCP: There is dilation of the common bile duct to 13 mm likely related to prior cholecystectomy distal tap ering at the ampulla with no evident obstructing stones or masses. No intrahepatic biliary ductal dil ation. IMPRESSION: 1. Persistent geographic region of likely transient hepatic attenuation difference in segment 2 of th e liver. The branching structure suspected potential thrombosed portal veins appears to represent morris ining branches of the left hepatic vein which enhance appropriately in the current study with the abs ence of enhancement in the prior study likely due to the phase of contrast. 2. Dilation of the common bile duct to 13 mm without evident obstructing lesion and without intrahepa tic biliary ductal dilation likely secondary to prior cholecystectomy. Reviewed, dictated and finalized at location A. IMPRESSION: 1. Persistent geographic region of likely transient hepatic attenuation differe nce in segment 2 of the liver. The branching structure suspected potential thro mbosed portal veins appears to represent draining branches of the left hepatic vein which enhance appropriately in the current study with the absence of enhan cement in the prior study likely due to the phase of contrast. 2. Dilation of the common bile duct to 13 mm without evident obstructing lesion and without intrahepatic biliary ductal dilation likely secondary to prior cho lecystectomy.
--- NOTE | ~2023-06-26 | CT_ITS ---
EXAMINATION: CT abdomen pelvis w con DATE: 06/26/2023 13:57 INDICATION: Upper abdominal pain and bloating TECHNIQUE: Computed tomography (CT) of the abdomen and pelvis was performed with 100 mL Omnipaque-350 intravenous contrast. Automated exposure control and iterative reconstruction technique were employe d. The dose-length product was 862.93 mGy-cm. COMPARISON: None FINDINGS: Smooth and irregular septal line thickening and mild groundglass opacities at the bilateral lung base s. Heart size is normal. Atherosclerotic coronary artery calcification. No pericardial or pleural eff usion. Small sliding-type hiatal hernia. Postoperative change of prior Scarlet-en-Y gastric bypass proce dure with antecolic Scarlet limb. Small region of focal hepatic steatosis at the ligamentum teres. Subtl e wedge-shaped region of likely transient hepatic attenuation difference with minimally increased enh ancement in segment 4A of the liver within which there is also a subtle branching pattern of decrease d which is suspicious for portal venous air thrombosis with differential including mild intrahepatic biliary ductal dilation Common bile duct measures up to 11 mm in maximal diameter which is likely rel ated to prior cholecystectomy. Spleen, pancreas and bilateral adrenal glands are normal. Bilateral no nobstructing nephrolithiasis with 12 mm and 2 mm stones in the upper pole of the left kidney and 5 mm stone in the lower pole of the right kidney. 7 mm low-attenuation likely cyst in the right kidney wh ich is too small to definitively characterize. There is prominent sigmoid and descending colon predom inant diverticulosis without associated inflammatory change to suggest diverticulitis. Normal append ix. No bowel obstruction. Bladder is normal. Age-related atrophy otherwise unremarkable uterus and bi lateral adnexa. No free intraperitoneal gas or fluid. No pathologically enlarged abdominal or pelvic lymphadenopathy. Mild lumbar and mild to moderate lower thoracic spondylosis. IMPRESSION: 1. Mild lung disease in the bilateral lower lobes which could represent pneumonia, mild pulmonary cuate ma, atelectasis, more chronic interstitial lung disease or some combination thereof. 2. Subtle branching pattern of decreased attenuation within a region of transient hepatic attenuation difference in segment 4A of the liver. Appearance is most suspicious for segmental portal venous thr ombosis with differential including local mild intrahepatic biliary ductal dilation. Correlate with l iver function tests and consider further evaluation with multiphase pre and postcontrast MRI. 3. Bilateral nonobstructing nephrolithiasis. 4. Diverticulosis. Reviewed, dictated and finalized at location A. IMPRESSION: 1. Mild lung disease in the bilateral lower lobes which could represent pneumon ia, mild pulmonary edema, atelectasis, more chronic interstitial lung disease o r some combination thereof. 2. Subtle branching pattern of decreased attenuation within a region of transie nt hepatic attenuation difference in segment 4A of the liver. Appearance is mos t suspicious for segmental portal venous thrombosis with differential including local mild intrahepatic biliary ductal dilation. Correlate with liver function tests and consider further evaluation with multiphase pre and postcontrast MRI . 3. Bilateral nonobstructing nephrolithiasis. 4. Diverticulosis.
[2023-06-26 13:00] VITALS: BP 155/78; PULSE 91; RESP 20; TEMP 36.2; O2SAT 98
--- NOTE | 2023-06-26 13:09 | ECG_ITS ---
SEE SCANNED COPY FOR CONFIRMED REPORT MTDD
--- NOTE | 2023-06-26 13:19 | ED.ABDPAIN ---
HPI - Abdominal Pain General Chief Complaint: Abdominal Pain Stated Complaint: abd, chest, back pain Time Seen by Provider: 06/26/23 13:08 History of Present Illness HPI narrative: 63 years old white female came to the emergency room by private car complaining of upper abdominal pain, sharp, stabbing radiating to the back bilaterally, steady, worse with movement, nothing make it better, was seen by her family physician recently and received a pain shot with temporary relief, history of chronic back pain secondary to arthritis, pain management every 3 months, currently on pain patch. History of diabetes, hyperlipidemia, asthma, gastric bypass, peptic ulcer disease brain aneurysm and aspirin patient does not smoke or drink or use drugs Related Data Home Medications Medication Instructions Recorded Confirmed albuterol sulfate 90 mcg/actuation 1 inhalation inhalation Q4H 11/02/19 06/26/23 aerosol inhaler (ProAir HFA) ferrous sulfate 325 mg (65 mg 325 mg PO DAILY 02/03/20 06/26/23 iron) tablet (Iron (ferrous sulfate)) epinastine 0.05 % eye drops 1 drp EACH EYE Q12H 06/30/22 06/26/23 fluticasone fur. 100 mcg-umeclid 1 inh inhalation DAILY 06/30/22 06/26/23 62.5 mcg-vilant 25 mcg inhalat.powder (Trelegy Ellipta) buprenorphine 5 mcg/hour weekly 1 patch transdermal WEEKLY 10/29/22 06/26/23 transdermal patch coenzyme Q10 10 mg capsule 10 mg PO DAILY 06/26/23 06/26/23 ergocalciferol (vitamin D2) 1,250 1,250 mcg PO WEEKLY 06/26/23 06/26/23 mcg (50,000 unit) capsule fluconazole 150 mg tablet 150 mg PO PRN PRN Yeast Infection 06/26/23 06/26/23 fluticasone propionate 93 1 spray intranasal BID 06/26/23 06/26/23 mcg/actuation breath activated aerosol (Xhance) ipratropium bromide 42 mcg (0.06 1 spray intranasal TID PRN Rhinitis 06/26/23 06/26/23 %) nasal spray Allergies Allergy/AdvReac Type Severity Reaction Status Date / Time cephalexin Allergy Mild Hives Verified 06/22/23 16:16 doxycycline Allergy Mild Vomiting Verified 06/22/23 16:16 Review of Systems Review of Systems: All systems reviewed & are unremarkable except as noted in HPI and below PMFSH Past Medical History Medical History (Updated 06/29/23 @ 07:20 by Maurice Mcallister MD) Abnormal CT of liver Allergic rhinitis Anxiety Asthma Chronic low back pain without sciatica Colon cancer screening Diverticulosis of large intestine without perforation or abscess Fibromyalgia GERD (gastroesophageal reflux disease) Hypogammaglobulinemia Hypokalemia Hypothyroidism Immunodeficiency Insomnia Iron deficiency Low ferritin Mixed hyperlipidemia Moderate episode of recurrent major depressive disorder Obstructive sleep apnea syndrome Psoriasis Recurrent acute suppurative otitis media without spontaneous rupture of left tympanic membrane Tobacco consumption Type 2 diabetes mellitus without complication, without long-term current use of insulin (07/05/15) Vitamin B12 deficiency Vitamin D deficiency Surgical History Surgical History H/O gastric bypass Hx of cataract surgery Family History Family History Mother Immunodeficiency Social History Social History Years smoked: 45 Smoking status: Light tobacco smoker Tobacco type: cigarettes Alcohol intake: never Substance use: never Substance use type: does not use Do You Feel Safe in your Home?: Yes Lack of Transportation: No Lack of Food: Never True Current Housing: I Have Housing Concerned About Future Housing: No Difficulty Paying Gas/Electric Bills: No Difficulty Paying for Meds: No Currently Unemployed: No Education: Trade/Vocational Certificate Difficulty w/ Childcare or Family Care: No Living arrangements: with family Gender identity (if verbalized by the patient): Female Sexual Orientation (if
[2023-06-26] MEDS: SODIUM CHLORIDE 0.9% IV 1,000 ML 999 ML IV CONT (13:40)
[2023-06-26] MEDS: ONDANSETRON INJ 4 MG/2 ML VIAL IV PUSH ×2 (13:43→21:07)
[2023-06-26] MEDS: HYDROmorphone HCL INJ (*CRX) 1 MG/ML SYR 0.5 MG IV PUSH ×3 (13:45→18:24)
[2023-06-26 13:46] LABS: Basophils Absolute Auto 0.1 K/mm3 (0.0-0.1); Basophils Percent Auto 0.5 % (0.2-1.2); Eosinophils Absolute Auto 0.1 K/mm3 (0-0.3); Eosinophils Percent Auto 0.7 % (0-4.4); Hematocrit 48.5 % (37.0-47.0); Hemoglobin 15.8 g/dL (12.0-15.0); Immature Granulocyte Absolute 0.04 K/mm3 (0.00-0.031); Immature Granulocyte Percent A 0.3 % (0-0.5); Lymphocytes Absolute Auto 3.11 K/mm3 (0.9-3.2); Lymphocytes Percent Auto 23.8 % (18.3-44.2); Mean Corpuscular HGB Conc 32.6 g/dl (32-36); Mean Corpuscular Hemoglobin 28.1 pg (26-34); Mean Corpuscular Volume 86.3 fl (80-100); Mean Platelet Volume 11.1 fl (7.4-10.4); Monocytes Absolute Auto 0.7 K/mm3 (0.1-0.6); Monocytes Percent Auto 5.4 % (2.6-8.5); Neutrophils Percent Auto 69.3 % (45.5-73.1); Platelet Count Result 439 k/mm3 (150-375); Red Blood Count 5.62 M/mm3 (4.2-5.4); Red Cell Distribution Width 15.9 % (11.5-14.5)
[2023-06-26 13:54] LABS: Estimated CRCL calculation 89 ml/min; Estimated Glomerular Filt Rate > 60
[2023-06-26 14:00] VITALS: BP 145/59; PULSE 80; RESP 16; O2SAT 99
[2023-06-26 14:00] LABS: INR 0.9; Prothrombin Time 12.6 Seconds (11.1-14.7)
[2023-06-26 14:01] LABS: Partial Thromboplastin Time 29.8 Seconds (22.3-36.8)
[2023-06-26 14:02] LABS: Alanine Aminotransferase 27 U/L (6-35); Albumin Level 4.7 g/dL (3.5-5.1); Alkaline Phosphatase 167 U/L (38-126); Anion Gap 9 mmol/L (4-12); Aspartate Amino Transferase 33 U/L (14-36); Bilirubin,Total 0.6 mg/dL (0.2-1.3); Blood Urea Nitrogen 11 mg/dL (7-17); Calcium 10.1 mg/dL (8.4-10.2); Carbon Dioxide 26 mmol/L (22-30); Chloride 102 mmol/L (98-107); Estimated CRCL calculation 89 ml/min; Estimated Glomerular Filt Rate > 60; Glucose 93 mg/dL (65-110); Lipase 29 U/L (23-300); Potassium 3.8 mmol/L (3.4-5.0); Sodium 137 mmol/L (137-145)
--- NOTE | 2023-06-26 15:22 | PM.IMHP ---
H&P: HPI History of Present Illness Date/Time: 06/26/23 15:22 Chief Complaint: worsening abdominal pain, possible portal venous thrombosis Narrative: This is a 63-year-old female patient who was admitted to the hospital for progressive worsening constant abdominal pain that she describes as continuous intermittent stabbing sensations all throughout the chest and abdomen. Patient reports that symptoms have been ongoing for the last several weeks and consistently getting worse. She notes the past medical history including diabetes, immune deficiency, fibromyalgia, insomnia, anxiety, prior gastric bypass and previously treated colon cancer. Patient went to see her primary care provider last week regarding this pain and was instructed to stay on an aspirin daily until she gets a coronary angiogram as her initial complaint was chest pain. However as symptoms have progressed patient also gets nausea with eating. CT scan obtained in the emergency department shows Subtle branching pattern of decreased attenuation within a region of transient hepatic attenuation difference in segment 4A of the liver. Appearance is most suspicious for segmental portal venous thrombosis with differential including local mild intrahepatic biliary ductal dilation. Correlate with liver function tests and consider further evaluation with multiphase pre and postcontrast MRI. Emergency department consulted Gastroenterology who recommended admission for MRI and will see patient tomorrow. I spoke with Gastroenterology and together we decided to initiate heparin drip in case portal venous thrombosis. Patient reports inadequate pain control. It is noted that she is wearing a buprenorphine patch which may be partially blocking the pain relieving properties narcotic pain medication. We discussed this with the patient and removed this patch as well as increased pain medication temporarily to try to achieve some level of pain control. Review of Systems Review of Systems: All systems reviewed & are unremarkable except as noted in HPI and below PMFSH Past Medical History Medical History Allergic rhinitis Anxiety Asthma Chronic low back pain without sciatica Colon cancer screening Diverticulosis of large intestine without perforation or abscess Fibromyalgia GERD (gastroesophageal reflux disease) Hypogammaglobulinemia Hypokalemia Hypothyroidism Immunodeficiency Insomnia Iron deficiency Low ferritin Mixed hyperlipidemia Moderate episode of recurrent major depressive disorder Obstructive sleep apnea syndrome Psoriasis Recurrent acute suppurative otitis media without spontaneous rupture of left tympanic membrane Tobacco consumption Type 2 diabetes mellitus without complication, without long-term current use of insulin (07/05/15) Vitamin B12 deficiency Vitamin D deficiency Surgical History Surgical History H/O gastric bypass Hx of cataract surgery Family History Family History Mother Immunodeficiency Social History Social History Years smoked: 45 Smoking status: Light tobacco smoker Tobacco type: cigarettes Alcohol intake: never Substance use: never Substance use type: does not use Do You Feel Safe in your Home?: Yes Lack of Transportation: No Lack of Food: Never True Current Housing: I Have Housing Concerned About Future Housing: No Difficulty Paying Gas/Electric Bills: No Difficulty Paying for Meds: No Currently Unemployed: No Education: Trade/Vocational Certificate Difficulty w/ Childcare or Family Care: No Living arrangements: with family Gender identity (if verbalized by the patient): Female Sexual Orientation (if Verbalized by the Patient): Straight or Heterosexual Spiritual care concerns: No A
[2023-06-26 15:30] VITALS: BP 146/56; PULSE 80; RESP 16; O2SAT 98
[2023-06-26 15:34] LABS: Appearance Urine Clear (Clear); Bacteria Urine None Seen /hpf; Bilirubin Urine Negative (Negative); Blood Urine Non-Hemolyzed Trace (Negative); Color Urine Yellow (Yellow); Glucose Urine UA 2+ mg/dL (Negative); Ketones Urine 1+ mg/dL (Negative); Leukocyte Esterase Ur Negative LEU/UL (Negative); Nitrate Urine Negative (Negative); Non Pathogenic Casts 0-2; Protein Urine Negative (Negative); Squamous Epithelial Cell Urine None Seen /hpf (Few); Urobilinogen Urine 0.2 mg/dL (<2.0); WBC Urine 0-5 /hpf (0-3)
[2023-06-26 15:47] LABS: Add Urine Microscopic? YES
[2023-06-26] MEDS: HEPARIN SODIUM 5,000 UNITS/ML VIAL 5000 UNITS IV PUSH (16:22)
[2023-06-26] MEDS: HEPARIN SOD/D5W 100 UNITS/ML 25,000 UNITS/250 ML BAG 11 UNITS IV CONT (16:23)
[2023-06-26 16:30] VITALS: BP 169/82; PULSE 88; RESP 16; O2SAT 98
[2023-06-26 16:50] VITALS: BMI 31.1
--- NOTE | 2023-06-26 16:50 | ADMGEN ---
This patient, Alexa Christopher, was admitted to 3 Med Surg Room 309-01 @ 4745. Patient/family oriented to hospital policies and general routines including ID bracelet, bed and alarms, visiting hours, pain management, procedures, bathroom and other care routines, personal items, smoking policy, room service/diet, and visiting hours. Information on how to activate the Rapid Response Team has been discussed. Patient/Family are encouraged to report perceived risks to care and to ask questions if they do not understand what they are told or what they should do.
[2023-06-26 17:00] VITALS: BP 155/70; PULSE 83; RESP 16; TEMP 36.4; O2SAT 97
[2023-06-26 18:38] LABS: Hemoglobin A1C 5.8 % (<5.7)
[2023-06-26] MEDS: SODIUM CHLORIDE 0.9% IV 1,000 ML 125 ML IV CONT (18:57)
[2023-06-26 19:23] LABS: Magnesium 2.4 mg/dL (1.6-2.3)
[2023-06-26 19:44] LABS: Folic Acid 5.5 ng/mL (2.76->20)
[2023-06-26 20:14] VITALS: BP 156/52; PULSE 72; RESP 16; TEMP 36.1; O2SAT 93
[2023-06-26 20:41] LABS: Glucose Point of Care 64 mg/dl (65-105)
[2023-06-26] MEDS: HYDROmorphone HCL INJ (*CRX) 1 MG/ML SYR IV PUSH (21:03)
[2023-06-26] MEDS: SUCRALFATE 1 GM TABLET PO (21:06)
[2023-06-26] MEDS: traZODone HCL 50 MG TABLET 150 MG PO (21:06)
[2023-06-26] MEDS: PANTOPRAZOLE 40 MG TABLET PO (21:07)
[2023-06-26 23:02] LABS: Partial Thromboplastin Time 70.3 Seconds (22.3-36.8)
[2023-06-26] MEDS: HEPARIN SODIUM 5,000 UNITS/ML VIAL 2500 UNITS IV PUSH (23:15)
[2023-06-27] MEDS: oxyCODONE HCL (*CRX) 5 MG TAB IR PO ×5 (01:24→20:07)
[2023-06-27] MEDS: SODIUM CHLORIDE 0.9% IV 1,000 ML 125 ML IV CONT (02:48)
[2023-06-27 05:16] VITALS: BP 137/63; PULSE 93; RESP 16; TEMP 36.4; O2SAT 92
[2023-06-27] MEDS: SUCRALFATE 1 GM TABLET PO ×4 (05:33→20:08)
[2023-06-27] MEDS: LEVOTHYROXINE SODIUM 25 MCG TABLET PO (05:33)
[2023-06-27 06:25] LABS: Basophils Absolute Auto 0.1 K/mm3 (0.0-0.1); Basophils Percent Auto 0.4 % (0.2-1.2); Eosinophils Absolute Auto 0.1 K/mm3 (0-0.3); Hematocrit 43.5 % (37.0-47.0); Hemoglobin 13.5 g/dL (12.0-15.0); Immature Granulocyte Absolute 0.05 K/mm3 (0.00-0.031); Immature Granulocyte Percent A 0.4 % (0-0.5); Lymphocytes Absolute Auto 3.56 K/mm3 (0.9-3.2); Lymphocytes Percent Auto 26.1 % (18.3-44.2); Mean Corpuscular Hemoglobin 28.1 pg (26-34); Mean Corpuscular Volume 90.6 fl (80-100); Mean Platelet Volume 11.7 fl (7.4-10.4); Monocytes Absolute Auto 0.9 K/mm3 (0.1-0.6); Monocytes Percent Auto 6.4 % (2.6-8.5); Neutrophils Percent Auto 65.7 % (45.5-73.1); Platelet Count Result 364 k/mm3 (150-375); Red Cell Distribution Width 16.1 % (11.5-14.5); White Blood Count 13.6 K/mm3 (4.5-10.0)
[2023-06-27 06:35] LABS: Partial Thromboplastin Time 70.2 Seconds (22.3-36.8)
[2023-06-27 06:37] LABS: Alanine Aminotransferase 24 U/L (6-35); Albumin Level 3.5 g/dL (3.5-5.1); Alkaline Phosphatase 144 U/L (38-126); Anion Gap 2 mmol/L (4-12); Aspartate Amino Transferase 31 U/L (14-36); Bilirubin,Total 0.4 mg/dL (0.2-1.3); Blood Urea Nitrogen 8 mg/dL (7-17); Calcium 8.6 mg/dL (8.4-10.2); Carbon Dioxide 28 mmol/L (22-30); Chloride 105 mmol/L (98-107); Estimated CRCL calculation 89 ml/min; Estimated Glomerular Filt Rate > 60; Glucose 81 mg/dL (65-110); Magnesium 2.3 mg/dL (1.6-2.3); Potassium 3.3 mmol/L (3.4-5.0); Sodium 135 mmol/L (137-145)
[2023-06-27] MEDS: HEPARIN SODIUM 5,000 UNITS/ML VIAL 2500 UNITS IV PUSH (06:44)
[2023-06-27 07:22] LABS: Glucose Point of Care 95 mg/dl (65-105)
--- NOTE | 2023-06-27 07:56 | ECG_ITS ---
SEE SCANNED COPY FOR CONFIRMED REPORT MTDD
[2023-06-27 08:00] VITALS: O2SAT 95
[2023-06-27] MEDS: FLUTICASONE/UMECLIDIN/VILANTER 100-62.5-25 MCG ELLIPTA 1 PUFF INHALATION (08:00)
[2023-06-27] MEDS: FERROUS SULFATE 325 MG TABLET DR PO (11:15)
[2023-06-27 11:16] LABS: Glucose Point of Care 93 mg/dl (65-105)
[2023-06-27] MEDS: DULoxetine HCL 30 MG CAPSULE.DR PO (11:16)
[2023-06-27] MEDS: LORATADINE 10 MG TABLET PO (11:16)
[2023-06-27] MEDS: POTASSIUM CHLORIDE 10 MEQ ER TABLET PO (11:16)
[2023-06-27] MEDS: DULoxetine HCL 60 MG CAPSULE.DR PO (11:16)
[2023-06-27] MEDS: PANTOPRAZOLE 40 MG TABLET PO ×2 (11:16→16:12)
[2023-06-27] MEDS: FLUTICASONE PROPIONATE 0.05% NA SPR 16 GM BTL (*BKC) 1 SPRAY NASAL ×2 (12:35→16:12)
--- NOTE | 2023-06-27 12:37 | PM.IMPN ---
Progress Note: A&P Assessment and Plan (1) Epigastric abdominal pain: Code(s): R10.13 - Epigastric pain Status: Acute Assessment and Plan: Onset 3 weeks ago 06/25 CT A/P: 1. Mild lung disease in the bilateral lower lobes which could represent pneumonia, mild pulmonary edema, atelectasis, more chronic interstitial lung disease or some combination thereof. 2. Subtle branching pattern of decreased attenuation within a region of transient hepatic attenuation difference in segment 4A of the liver. Appearance is most suspicious for segmental portal venous thrombosis with differential including local mild intrahepatic biliary ductal dilation. Correlate with liver function tests and consider further evaluation with multiphase pre and postcontrast MRI. 3. Bilateral nonobstructing nephrolithiasis. 4. Diverticulosis. 06/26 MRCP pending Continue IV heparin and analgesics, clear liquid diet (2) Type 2 diabetes mellitus without complication, without long-term current use of insulin: Onset Date: 07/05/15 Code(s): E11.9 - Type 2 diabetes mellitus without complications Status: Acute Assessment and Plan: Holding oral hypoglycemics SSI (3) Fibromyalgia: Code(s): M79.7 - Fibromyalgia Status: Acute Assessment and Plan: Analgesics prn Holding buprenorphine patch (4) H/O gastric bypass: Code(s): Z98.84 - Bariatric surgery status Status: Chronic Assessment and Plan: Continue home regimen Subjective Date/time seen: 06/27/23 12:37 Interval history: Admitted 06/25 for escalating abdominal pain epigastric left quadrant with some pain radiating to the lower substernal region. Initial evaluation showed chest x-ray was unremarkable CT the abdomen pelvis suggested possible portal vein from heparin drip and analgesia were begun clear liquid diet. She had mild hypoglycemia overnight with blood sugar in the 60s. Pain admission was 12/02. Currently 3 over CV scheduled Oxycodone. denied chest pain or shortness of breath. Denied change in stools per denied dizziness or syncope. Denied abnormal bleeding. Last mammogram was about 5 months ago. Pap test about 10 months ago. Colonoscopy about 2 years ago. She is on intermittent immune for common variable immunodeficiency Review of Systems Review of Systems: All systems reviewed & are unremarkable except as noted in HPI and below Exam Narrative: HEENT: sclerae nonicteric, pharyngeal mucosa pink and intact NECK: No JVD CHEST: Clear to auscultation. Normal effort. HEART: NL S1/S2, regular, no murmur ABDOMEN: BS+, soft, TENDER EPIGASTRIC TO LUQ, NO MASS, GUARDING OR REBOUND. EXTREMITIES: No cyanosis, edema, or clubbing NEUROLOGIC: CN intact and symmetric to inspection. MUSCULOSKELETAL: Tone and strength symmetric. PSYCH: Alert. Oriented to person, place, and time. Objective Data Vital Signs Vital Signs: Vital Signs - 24 hr 06/26/23 13:00 06/26/23 16:30 06/26/23 15:30 Temperature 97.2 F L Pulse Rate 91 88 80 Respiratory Rate 20 16 16 Blood Pressure 155/78 H 169/82 H 146/56 H Pulse Oximetry 98 98 98 Oxygen Delivery Room Air 06/26/23 14:00 06/26/23 18:12 06/26/23 17:00 Temperature 97.5 F L Pulse Rate 80 83 Respiratory Rate 16 16 Blood Pressure 145/59 H 155/70 H Pulse Oximetry 99 97 Oxygen Delivery Room Air 06/26/23 20:14 06/26/23 20:00 06/27/23 05:16 Temperature 97 F L 97.5 F L Pulse Rate 72 93 Respiratory Rate 16 16 Blood Pressure 156/52 H 137/63 Pulse Oximetry 93 92 Oxygen Delivery Room Air 06/27/23 08:00 06/27/23 08:00 Temperature Pulse Rate Respiratory Rate Blood Pressure Pulse Oximetry 95 Oxygen Delivery Room Air Room Air Intake/Output Intake/Output: Intake & Output 06/24/23 06/25/23 06/26/23 06/27/23 23:59 23:59 23:59 23:59 Intake Total 1075.9 1620.7 Balance 1075.9 1620.7 Meds/Results Medications: Active Medications
[2023-06-27 13:19] LABS: Partial Thromboplastin Time 64.8 Seconds (22.3-36.8)
[2023-06-27 14:00] VITALS: BP 146/57; PULSE 81; RESP 16; TEMP 36.3; O2SAT 95
[2023-06-27] MEDS: LACTATED RINGERS 1,000 ML 80 ML IV CONT (14:30)
--- NOTE | 2023-06-27 15:12 | WPDGICN ---
Assessment and Plan Assessment and plan (1) Epigastric abdominal pain: Code(s): R10.13 - Epigastric pain Status: Acute Assessment and Plan: ok to advance diet on protonix and carafate by primary if persistent pain then we can check with EGD on Thursday (2) Abnormal CT of liver: Code(s): R93.2 - Abnormal findings on diagnostic imaging of liver and biliary tract Status: Acute Assessment and Plan: MRI liver reviewed, no obvious portal vein clot we can stop heparin drip transaminases and bili normal, mild elevated AP but chronic (3) GERD (gastroesophageal reflux disease): Code(s): K21.9 - Gastro-esophageal reflux disease without esophagitis Status: Acute (4) Type 2 diabetes mellitus without complication, without long-term current use of insulin: Onset Date: 07/05/15 Code(s): E11.9 - Type 2 diabetes mellitus without complications Status: Acute Assessment and Plan: on meds (5) Diverticulosis of large intestine without perforation or abscess: Code(s): K57.30 - Diverticulosis of large intestine without perforation or abscess without bleeding Status: Acute (6) H/O gastric bypass: Code(s): Z98.84 - Bariatric surgery status Status: Chronic GI Consult Note Consult date/time: 06/27/23 15:12 Reason for consult: abdominal pain, abnormal liver by CT scan HPI: Alexa Christopher is a 63 year old female wiht history of diabetes, hyperlipidemia, asthma, gastric bypass in mid 1999 as bariatric surgery, peptic ulcer disease, brain aneurysm diagnosed treated with angiogram and coiling using aspirin. She is here with chronic abdominal pain for last few months but much worse last few days, she thought could have been related to aspirin, she also uses omeprazole and her doctor recently changed to pantoprazole and added carafate but pain did not get any better. Describes pain as sharp, stabbing radiating to the back bilaterally, steady, worse with movement, nothing make it better. Her doctor even applied pain shot with temporary relief, also history of chronic back pain secondary to arthritis, pain management every 3 months, currently on pain patch.?CT liver reviewed, noted subtle branching pattern of decreased attenuation within a region of transient hepatic attenuation difference in segment 4A of the liver. Appearance is most suspicious for segmental portal venous thrombosis with differential including local mild intrahepatic biliary ductal dilation. Diverticulosis. Started on heparin gtt. Liver enzymes normal, AP 150. She had EGD and colonoscopy 2019, only diverticulosis and s/p gastric bypass. Review of Systems Constitutional: Constitutional: Denies chills Eyes: Eyes: Denies blurry vision ENT: Reports Normal hearing present and Denies neck pain Cardiovascular: Cardiovascular: Denies chest pain and Denies dyspnea Respiratory: Respiratory: Denies dyspnea Gastrointestinal: Gastrointestinal: Reports abdominal pain Genitourinary: Genitourinary: Denies dysuria Musculoskeletal: Musculoskeletal: Reports back pain (chronic) Integumentary/Breasts: Skin/Breast: Denies dry skin Neurologic: Reports Normal hearing present Psychiatric: Psychiatric: Denies anxiety Endocrine: Endocrine: Denies change in body appearance [facility] Past Medical History Medical History (Updated 06/27/23 @ 15:24 by Emory Snyder MD) Abnormal CT of liver Allergic rhinitis Anxiety Asthma Chronic low back pain without sciatica Colon cancer screening Diverticulosis of large intestine without perforation or abscess Fibromyalgia GERD (gastroesophageal reflux disease) Hypogammaglobulinemia Hypokalemia Hypothyroidism Immunodeficiency Insomnia Iron deficiency Low ferritin Mixed hyperlipidemia Moderate episode of recurrent major depressive disorder Obstructive sleep apnea syndrome Psoriasis Recurrent acute suppurative otitis media without spontaneo
[2023-06-27] MEDS: HYDROmorphone HCL INJ (*CRX) 1 MG/ML SYR IV PUSH (16:05)
[2023-06-27] MEDS: POTASSIUM CHLORIDE 20 MEQ ER TABLET PO (16:12)
[2023-06-27 16:30] LABS: Glucose Point of Care 113 mg/dl (65-105)
[2023-06-27] MEDS: traZODone HCL 50 MG TABLET 150 MG PO (20:08)
[2023-06-27] MEDS: MONTELUKAST SODIUM 10 MG TABLET PO (20:09)
[2023-06-27] MEDS: ONDANSETRON INJ 4 MG/2 ML VIAL IV PUSH (20:09)
[2023-06-27] MEDS: SIMVASTATIN 10 MG TABLET PO (20:09)
[2023-06-27 21:18] LABS: Glucose Point of Care 99 mg/dl (65-105)
[2023-06-27 21:43] VITALS: BP 117/53; PULSE 79; RESP 18; TEMP 36.6; O2SAT 93
[2023-06-28] MEDS: HYDROmorphone HCL INJ (*CRX) 1 MG/ML SYR IV PUSH ×3 (01:03→17:36)
[2023-06-28] MEDS: LACTATED RINGERS 1,000 ML 80 ML IV CONT ×2 (02:24→14:47)
[2023-06-28 05:29] LABS: Basophils Percent Auto 0.3 % (0.2-1.2); Eosinophils Absolute Auto 0.1 K/mm3 (0-0.3); Eosinophils Percent Auto 0.8 % (0-4.4); Hematocrit 38.1 % (37.0-47.0); Immature Granulocyte Absolute 0.03 K/mm3 (0.00-0.031); Immature Granulocyte Percent A 0.3 % (0-0.5); Lymphocytes Absolute Auto 2.76 K/mm3 (0.9-3.2); Lymphocytes Percent Auto 24.8 % (18.3-44.2); Mean Corpuscular HGB Conc 31.5 g/dl (32-36); Mean Corpuscular Hemoglobin 28.2 pg (26-34); Mean Corpuscular Volume 89.6 fl (80-100); Mean Platelet Volume 11.5 fl (7.4-10.4); Monocytes Absolute Auto 0.8 K/mm3 (0.1-0.6); Monocytes Percent Auto 7.2 % (2.6-8.5); Neutrophils Absolute Auto 7.4 K/mm3 (1.3-6.7); Neutrophils Percent Auto 66.6 % (45.5-73.1); Platelet Count Result 284 k/mm3 (150-375); Red Blood Count 4.25 M/mm3 (4.2-5.4); Red Cell Distribution Width 16.3 % (11.5-14.5); White Blood Count 11.2 K/mm3 (4.5-10.0)
[2023-06-28 05:45] LABS: Alanine Aminotransferase 20 U/L (6-35); Albumin Level 3.2 g/dL (3.5-5.1); Alkaline Phosphatase 124 U/L (38-126); Anion Gap 3 mmol/L (4-12); Aspartate Amino Transferase 24 U/L (14-36); Bilirubin,Total 0.5 mg/dL (0.2-1.3); Blood Urea Nitrogen 9 mg/dL (7-17); Calcium 8.7 mg/dL (8.4-10.2); Carbon Dioxide 26 mmol/L (22-30); Chloride 108 mmol/L (98-107); Estimated CRCL calculation 89 ml/min; Estimated Glomerular Filt Rate > 60; Glucose 98 mg/dL (65-110); Magnesium 2.3 mg/dL (1.6-2.3); Potassium 3.7 mmol/L (3.4-5.0); Sodium 137 mmol/L (137-145)
[2023-06-28 06:00] VITALS: BP 131/60; PULSE 73; RESP 18; TEMP 36.6; O2SAT 94
[2023-06-28] MEDS: SUCRALFATE 1 GM TABLET PO ×4 (06:24→20:41)
[2023-06-28] MEDS: LEVOTHYROXINE SODIUM 25 MCG TABLET PO (06:24)
[2023-06-28] MEDS: oxyCODONE HCL (*CRX) 5 MG TAB IR PO ×3 (06:30→20:47)
[2023-06-28 06:58] VITALS: PULSE 81; RESP 18; O2SAT 95
[2023-06-28] MEDS: FLUTICASONE/UMECLIDIN/VILANTER 100-62.5-25 MCG ELLIPTA 1 PUFF INHALATION (06:58)
[2023-06-28 07:23] LABS: Glucose Point of Care 104 mg/dl (65-105)
[2023-06-28] MEDS: DULoxetine HCL 30 MG CAPSULE.DR PO (08:25)
[2023-06-28] MEDS: BACLOFEN 10 MG TABLET 20 MG PO ×3 (08:25→17:32)
[2023-06-28] MEDS: POTASSIUM CHLORIDE 20 MEQ ER TABLET PO ×2 (08:25→17:31)
[2023-06-28] MEDS: FERROUS SULFATE 325 MG TABLET DR PO (08:25)
[2023-06-28] MEDS: FLUTICASONE PROPIONATE 0.05% NA SPR 16 GM BTL (*BKC) 1 SPRAY NASAL ×2 (08:25→17:32)
[2023-06-28] MEDS: PANTOPRAZOLE 40 MG TABLET PO ×2 (08:25→17:31)
[2023-06-28] MEDS: LORATADINE 10 MG TABLET PO (08:25)
[2023-06-28] MEDS: DULoxetine HCL 60 MG CAPSULE.DR PO (08:25)
[2023-06-28 11:14] LABS: Glucose Point of Care 106 mg/dl (65-105)
--- NOTE | 2023-06-28 12:04 | WPDGIPROGNO ---
Progress Note: A&P Assessment and Plan (1) Epigastric abdominal pain: Code(s): R10.13 - Epigastric pain Status: Acute Assessment and Plan: will assess with egd tomorrow to assess if esophagitis, pud, etc. She is at higher risk because post gastric bypass MRI without portal vein thrombosis, normal liver enzymes, mild bile duct dilation without defects- probably related to cholecystectomy status (2) Abnormal CT of liver: Code(s): R93.2 - Abnormal findings on diagnostic imaging of liver and biliary tract Status: Acute Assessment and Plan: mri reviewed (3) GERD (gastroesophageal reflux disease): Code(s): K21.9 - Gastro-esophageal reflux disease without esophagitis Status: Acute Assessment and Plan: on ppi (4) H/O gastric bypass: Code(s): Z98.84 - Bariatric surgery status Status: Chronic (5) Fibromyalgia: Code(s): M79.7 - Fibromyalgia Status: Acute Subjective Date/time seen: 06/28/23 12:04 Interval history: no changes, still epigastric pain and fullness after eating but similar problem since having gastric bypass surgery Review of Systems Review of Systems: All systems reviewed & are unremarkable except as noted in HPI and below Exam Const: General: comfortable and no acute distress HENMT: Face/Nose/Sinus: Normal nares present Eyes: General: appearance normal, both eyes and all related structures Neck: Neck: supple Resp: Auscultation: clear to auscultation bilaterally Cardio: Rate: regular rate Rhythm: regular rhythm GI: Inspection: non-distended GI Palp: Yes Soft to palpation, Yes Tenderness to palpation present (GI) (mild ttp in epigastric, no rebound) and No Guarding due to palpation present (GI) Auscultation: normal bowel sounds Skin: General skin exam: normal color Neuro: Speech: normal speech Motor exam (neuro): 5/5 motor strength present throughout Extrem: General: normal to inspection Psych: Mental Status: mental status grossly normal Objective Data Vital Signs Vital Signs: Vital Signs - 24 hr 06/27/23 14:00 06/27/23 21:43 06/27/23 20:10 Temperature 97.3 F L 98 F Pulse Rate 81 79 Respiratory Rate 16 18 Blood Pressure 146/57 H 117/53 L Pulse Oximetry 95 93 Oxygen Delivery Room Air 06/28/23 06:00 06/28/23 06:58 06/28/23 06:58 Temperature 97.9 F Pulse Rate 73 81 81 Respiratory Rate 18 18 18 Blood Pressure 131/60 Pulse Oximetry 94 95 Oxygen Delivery Room Air 06/28/23 08:30 Temperature Pulse Rate Respiratory Rate Blood Pressure Pulse Oximetry Oxygen Delivery Room Air Intake/Output Intake/Output: Intake & Output 06/25/23 06/26/23 06/27/23 06/28/23 23:59 23:59 23:59 23:59 Intake Total 1075.9 2340.7 1192 Balance 1075.9 2340.7 1192 Meds/Results Medications: Active Medications Generic Name Dose Route Start Last Admin Trade Name Freq PRN Reason Stop Dose Admin Albuterol 1 puff 06/26/23 20:07 Albuterol Sulfate (*Sp) Aerosol 1 Puff INHALATION Q4H PRN wheeze/cough/dyspnea Baclofen 20 mg 06/26/23 20:07 06/28/23 08:25 Baclofen 10 Mg Tablet PO 20 mg TID PRN Administration MUSCLE SPASMS Dextrose 12.5 gm 06/26/23 20:09 Dextrose 50% 25 Gm/50 Ml Syringe IV PUSH PRN PRN Hypoglycemia Protocol Duloxetine HCl 30 mg 06/27/23 09:00 06/28/23 08:25 Duloxetine Hcl 30 Mg Capsule. PO 30 mg DAILY JUAN Administration Duloxetine HCl 60 mg 06/27/23 09:00 06/28/23 08:25 Duloxetine Hcl 60 Mg Capsule. PO 60 mg DAILY JUAN Administration Empagliflozin 10 mg 06/27/23 09:00 Empagliflozin 10 Mg Tablet PO DAILY JUAN Ergocalciferol 50,000 units 07/01/23 09:00 Ergocalciferol 50,000 Units Capsule PO Q7D JUAN Ferrous Sulfate 325 mg 06/27/23 09:00 06/28/23 08:25 Ferrous Sulfate [address] PO 325 mg DAILY JUAN Administration Fluticasone Propionate 1 spray 06/27/23
[2023-06-28 14:00] VITALS: BP 129/63; PULSE 62; RESP 16; TEMP 36.4; O2SAT 97
--- NOTE | 2023-06-28 16:06 | PM.IMPN ---
Progress Note: A&P Assessment and Plan (1) Epigastric abdominal pain: Code(s): R10.13 - Epigastric pain Status: Acute Assessment and Plan: Onset 3 weeks ago 06/25 CT A/P: 1. Mild lung disease in the bilateral lower lobes which could represent pneumonia, mild pulmonary edema, atelectasis, more chronic interstitial lung disease or some combination thereof. 2. Subtle branching pattern of decreased attenuation within a region of transient hepatic attenuation difference in segment 4A of the liver. Appearance is most suspicious for segmental portal venous thrombosis with differential including local mild intrahepatic biliary ductal dilation. Correlate with liver function tests and consider further evaluation with multiphase pre and postcontrast MRI. 3. Bilateral nonobstructing nephrolithiasis. 4. Diverticulosis. 06/26 MRCP without thrombus, so heparin discontinued Continue analgesics EGD planned for 06/28 (2) Type 2 diabetes mellitus without complication, without long-term current use of insulin: Onset Date: 07/05/15 Code(s): E11.9 - Type 2 diabetes mellitus without complications Status: Acute Assessment and Plan: Holding oral hypoglycemics SSI 06/27 FBS 104 (3) Fibromyalgia: Code(s): M79.7 - Fibromyalgia Status: Acute Assessment and Plan: Analgesics prn Holding buprenorphine patch (4) H/O gastric bypass: Code(s): Z98.84 - Bariatric surgery status Status: Chronic Assessment and Plan: Continue home regimen Subjective Date/time seen: 06/28/23 16:06 Interval history: No changes, still epigastric pain and fullness after eating but similar problem since having gastric bypass surgery. Fells bloated and constipated. Requests laxative. She and now think that her issues began when there was a shortage of Mounjaro and she used Ozempic instead. Review of Systems Review of Systems: All systems reviewed & are unremarkable except as noted in HPI and below Exam Narrative: HEENT: sclerae nonicteric, pharyngeal mucosa pink and intact NECK: No JVD CHEST: Clear to auscultation. Normal effort. HEART: NL S1/S2, regular, no murmur ABDOMEN: BS+, soft, TENDER EPIGASTRIC TO BILATERAL UQ, NO MASS, GUARDING OR REBOUND. EXTREMITIES: No cyanosis, edema, or clubbing NEUROLOGIC: CN intact and symmetric to inspection. MUSCULOSKELETAL: Tone and strength symmetric. PSYCH: Alert. Oriented to person, place, and time. Objective Data Vital Signs Vital Signs: Vital Signs - 24 hr 06/27/23 21:43 06/27/23 20:10 06/28/23 06:00 Temperature 98 F 97.9 F Pulse Rate 79 73 Respiratory Rate 18 18 Blood Pressure 117/53 L 131/60 Pulse Oximetry 93 94 Oxygen Delivery Room Air 06/28/23 06:58 06/28/23 06:58 06/28/23 08:30 Temperature Pulse Rate 81 81 Respiratory Rate 18 18 Blood Pressure Pulse Oximetry 95 Oxygen Delivery Room Air Room Air 06/28/23 14:00 Temperature 97.6 F Pulse Rate 62 Respiratory Rate 16 Blood Pressure 129/63 Pulse Oximetry 97 Oxygen Delivery Intake/Output Intake/Output: Intake & Output 06/25/23 06/26/23 06/27/23 06/28/23 23:59 23:59 23:59 23:59 Intake Total 1075.9 2340.7 2422.7 Balance 1075.9 2340.7 2422.7 Meds/Results Medications: Active Medications Generic Name Dose Route Start Last Admin Trade Name Freq PRN Reason Stop Dose Admin Albuterol 1 puff 06/26/23 20:07 Albuterol Sulfate (*Sp) Aerosol 1 Puff INHALATION Q4H PRN wheeze/cough/dyspnea Baclofen 20 mg 06/26/23 20:07 06/28/23 14:46 Baclofen 10 Mg Tablet PO 20 mg TID PRN Administration MUSCLE SPASMS Dextrose 12.5 gm 06/26/23 20:09 Dextrose 50% 25 Gm/50 Ml Syringe IV PUSH PRN PRN Hypoglycemia Protocol Duloxetine HCl 30 mg 06/27/23 09:00 06/28/23 08:25 Duloxetine Hcl 30 Mg Capsule.Dr PO 30 mg DAILY JUAN Administration Duloxetine HCl 60 mg 06/27/23 09:00
[2023-06-28 16:23] LABS: Glucose Point of Care 139 mg/dl (65-105)
[2023-06-28] MEDS: SENNOSIDES 8.6 MG TABLET 17.2 MG PO (17:38)
[2023-06-28] MEDS: traZODone HCL 50 MG TABLET 150 MG PO (20:41)
[2023-06-28] MEDS: SIMVASTATIN 10 MG TABLET PO (20:41)
[2023-06-28] MEDS: MONTELUKAST SODIUM 10 MG TABLET PO (20:41)
[2023-06-28 21:10] LABS: Glucose Point of Care 136 mg/dl (65-105)
[2023-06-28 21:43] VITALS: BP 125/60; PULSE 68; RESP 16; TEMP 36.2; O2SAT 95
[2023-06-29] VITALS (8 sets, daily range): BP systolic 89–146; BP diastolic 34–63; PULSE 60–78; RESP 16–23; TEMP 36.1–36.4; O2SAT 92–100
[2023-06-29] MEDS: LEVOTHYROXINE SODIUM 25 MCG TABLET PO (06:04)
[2023-06-29] MEDS: SUCRALFATE 1 GM TABLET PO ×2 (06:04→16:46)
[2023-06-29] MEDS: oxyCODONE HCL (*CRX) 5 MG TAB IR PO (06:04)
[2023-06-29] MEDS: LACTATED RINGERS 1,000 ML 80 ML IV CONT (06:05)
[2023-06-29 06:15] LABS: Basophils Percent Auto 0.4 % (0.2-1.2); Eosinophils Absolute Auto 0.1 K/mm3 (0-0.3); Eosinophils Percent Auto 1.1 % (0-4.4); Hematocrit 39.4 % (37.0-47.0); Hemoglobin 12.1 g/dL (12.0-15.0); Immature Granulocyte Absolute 0.03 K/mm3 (0.00-0.031); Immature Granulocyte Percent A 0.3 % (0-0.5); Lymphocytes Absolute Auto 2.18 K/mm3 (0.9-3.2); Lymphocytes Percent Auto 20.8 % (18.3-44.2); Mean Corpuscular HGB Conc 30.7 g/dl (32-36); Mean Corpuscular Hemoglobin 27.8 pg (26-34); Mean Corpuscular Volume 90.6 fl (80-100); Mean Platelet Volume 11.6 fl (7.4-10.4); Monocytes Absolute Auto 0.8 K/mm3 (0.1-0.6); Monocytes Percent Auto 7.3 % (2.6-8.5); Neutrophils Absolute Auto 7.4 K/mm3 (1.3-6.7); Neutrophils Percent Auto 70.1 % (45.5-73.1); Platelet Count Result 295 k/mm3 (150-375); Red Blood Count 4.35 M/mm3 (4.2-5.4); Red Cell Distribution Width 15.9 % (11.5-14.5); White Blood Count 10.5 K/mm3 (4.5-10.0)
[2023-06-29 06:21] LABS: Alanine Aminotransferase 20 U/L (6-35); Albumin Level 3.2 g/dL (3.5-5.1); Alkaline Phosphatase 129 U/L (38-126); Anion Gap 1 mmol/L (4-12); Aspartate Amino Transferase 24 U/L (14-36); Bilirubin,Total 0.6 mg/dL (0.2-1.3); Blood Urea Nitrogen 8 mg/dL (7-17); Calcium 8.6 mg/dL (8.4-10.2); Carbon Dioxide 31 mmol/L (22-30); Chloride 106 mmol/L (98-107); Estimated CRCL calculation 89 ml/min; Estimated Glomerular Filt Rate > 60; Glucose 111 mg/dL (65-110); Potassium 3.8 mmol/L (3.4-5.0); Sodium 138 mmol/L (137-145)
[2023-06-29 07:49] LABS: Glucose Point of Care 122 mg/dl (65-105)
[2023-06-29] MEDS: FLUTICASONE/UMECLIDIN/VILANTER 100-62.5-25 MCG ELLIPTA 1 PUFF INHALATION (08:00)
[2023-06-29] MEDS: POTASSIUM CHLORIDE 20 MEQ ER TABLET PO ×2 (08:20→16:47)
[2023-06-29] MEDS: DULoxetine HCL 60 MG CAPSULE.DR PO (08:20)
[2023-06-29] MEDS: FERROUS SULFATE 325 MG TABLET DR PO (08:20)
[2023-06-29] MEDS: DULoxetine HCL 30 MG CAPSULE.DR PO (08:20)
[2023-06-29] MEDS: FLUTICASONE PROPIONATE 0.05% NA SPR 16 GM BTL (*BKC) 1 SPRAY NASAL ×2 (08:20→16:47)
[2023-06-29] MEDS: LORATADINE 10 MG TABLET PO (08:20)
[2023-06-29] MEDS: PANTOPRAZOLE 40 MG TABLET PO ×2 (08:20→16:47)
[2023-06-29 10:36] LABS: Glucose Point of Care 98 mg/dl (65-105)
[2023-06-29] MEDS: LACTATED RINGERS 1,000 ML 150 ML IV CONT (10:46)
--- NOTE | 2023-06-29 11:23 | WPDANESEPPF ---
Anes - Initial Pre Proc Eval Procedure: Operation Date: 06/29/23 14:30 Proposed Procedures p Esophagogastroduodenoscopy - Emory Snyder MD Date/Time: 06/29/23 11:23 Surgeon: Caden Gusman MD Pre Op Diagnosis: Abdominal Pain/Poss Portal Vein Thrombosis Patient Data Age: 63 Gender: F Height: 1.56 m Weight: 76 kg Last Vital Signs Temp 36.1 C L 06/29/23 10:39 Pulse 60 06/29/23 10:39 Resp 18 06/29/23 10:39 BP 136/63 06/29/23 10:39 Pulse Ox 100 06/29/23 10:39 O2 Del Method Room Air 06/29/23 10:39 Allergies Allergy/AdvReac Type Severity Reaction Status Date / Time cephalexin Allergy Mild Hives Verified 06/22/23 16:16 doxycycline Allergy Mild Vomiting Verified 06/22/23 16:16 Home Medications Medication Instructions Recorded Confirmed Type albuterol sulfate 90 mcg/actuation 1 inhalation inhalation Q4H 11/02/19 06/26/23 History aerosol inhaler (ProAir HFA) ferrous sulfate 325 mg (65 mg 325 mg PO DAILY 02/03/20 06/26/23 History iron) tablet (Iron (ferrous sulfate)) epinastine 0.05 % eye drops 1 drp EACH EYE Q12H 06/30/22 06/26/23 History fluticasone fur. 100 mcg-umeclid 1 inh inhalation DAILY 06/30/22 06/26/23 History 62.5 mcg-vilant 25 mcg inhalat.powder (Trelegy Ellipta) simvastatin 10 mg tablet 10 mg PO DAILY #90 tabs 08/06/22 06/26/23 Rx buprenorphine 5 mcg/hour weekly 1 patch transdermal WEEKLY 10/29/22 06/26/23 History transdermal patch levocetirizine 5 mg tablet (Xyzal) 5 mg PO DAILY #90 tabs 12/05/22 06/26/23 Rx triamterene 75 See Rx Instructions .Route 01/13/23 06/26/23 Rx mg-hydrochlorothiazide 50 mg tablet .COMPLEX #90 tabs glimepiride 1 mg tablet 1 mg PO QAM #90 tabs 01/14/23 06/26/23 Rx trazodone 100 mg tablet 150 mg PO QHS #135 tabs 01/14/23 06/26/23 Rx potassium chloride 10 mEq 10 meq PO DAILY #90 caps 04/09/23 06/26/23 Rx capsule,extended release levothyroxine 25 mcg tablet 25 mcg PO DAILY #90 tabs 04/10/23 06/26/23 Rx (Synthroid) duloxetine 30 mg capsule,delayed 30 mg PO DAILY #90 caps 04/13/23 06/26/23 Rx release empagliflozin 10 mg tablet 10 mg PO DAILY #90 tabs 04/14/23 06/26/23 Rx (Jardiance) montelukast 10 mg tablet 10 mg PO DAILY #90 tabs 04/14/23 06/26/23 Rx duloxetine 60 mg capsule,delayed 60 mg PO DAILY #90 caps 04/16/23 06/26/23 Rx release baclofen 20 mg tablet 20 mg PO TID PRN pain #90 tabs 05/13/23 06/26/23 Rx pantoprazole 40 mg tablet,delayed 40 mg PO BID #60 tabs 06/22/23 06/26/23 Rx release sucralfate 1 gram tablet (Carafate) 1 g PO .QID #120 tabs 06/22/23 06/26/23 Rx coenzyme Q10 10 mg capsule 10 mg PO DAILY 06/26/23 06/26/23 History ergocalciferol (vitamin D2) 1,250 1,250 mcg PO WEEKLY 06/26/23 06/26/23 History mcg (50,000 unit) capsule fluconazole 150 mg tablet 150 mg PO PRN PRN Yeast Infection 06/26/23 06/26/23 History fluticasone propionate 93 1 spray intranasal BID 06/26/23 06/26/23 History mcg/actuation breath activated aerosol (Xhance) ipratropium bromide 42 mcg (0.06 1 spray intranasal TID PRN Rhinitis 06/26/23 06/26/23 History %) nasal spray Laboratory Tests 06/28/23 06/28/23 06/29/23 16:18 20:48 05:56 WBC 10.5 H K/mm3 (4.5-10.0) RBC 4.35 M/mm3 (4.2-5.4) Hgb 12.1 g/dL (12.0-15.0) Hct 39.4 % (37.0-47.0) MCV 90.6 fl (80-100) MCH 27.8 pg (26-34) MCHC 30.7 L g/dl (32-36) RDW 15.9 H % (11.5-14.5) Plt Count 295 k/mm3 (150-375) MPV 11.6 H fl (7.4-10.4) Immature Gran % (Auto) 0.3 % (0-0.5) Neut % (Auto) 70.1 % (45.5-73.1) Lymph % (Auto) 20.8 % (18.3-44.2) Piatt % (Auto) 7.3 % (2.6-8.5) Eos % (Auto) 1.1 % (0-4.4) Baso % (Auto) 0.4 % (0.2-1.2) Lymph # (Auto) 2.18 K/mm3 (0.9-3.2) Piatt # (Auto) 0.8 H K/mm3 (0.1-0.6) Eos # (Auto) 0.1 K/mm3 (0-0.3) B
[2023-06-29 12:34] LABS: Glucose Point of Care 104 mg/dl (65-105)
[2023-06-29 16:39] LABS: Glucose Point of Care 86 mg/dl (65-105)
--- NOTE | 2023-06-29 17:17 | P.DS_ITS ---
DS: Admitting Diagnosis Discharge Date 06/29/2023 Admitting Diagnosis Worsening abdominal pain, possible portal venous thrombosis DS: Discharge Diagnosis Discharge Diagnosis (1) Epigastric abdominal pain: Code(s): R10.13 - Epigastric pain Status: Acute Assessment and Plan: * Onset 3 weeks ago * 06/25 CT A/P: 1. Mild lung disease in the bilateral lower lobes which could represent pneumonia, mild pulmonary edema, atelectasis, more chronic interstitial lung disease or some combination thereof. 2. Subtle branching pattern of decreased attenuation within a region of transient hepatic attenuation difference in segment 4A of the liver. Appearance is most suspicious for segmental portal venous thrombosis with differential including local mild intrahepatic biliary ductal dilation. Correlate with liver function tests and consider further evaluation with multiphase pre and postcon trast MRI. 3. Bilateral nonobstructing nephrolithiasis. 4. Diverticulosis. * 06/26 MRCP without thrombus, so heparin discontinued * Continue analgesics * EGD planned for 06/28 shows hiatal hernia * MRI without portal vein thrombosis, normal liver enzymes, mild bile duct dilation without defects- probably related to cholecystectomy status (2) Type 2 diabetes mellitus without complication, without long-term current use of insulin: Onset Date: 07/05/15 Code(s): E11.9 - Type 2 diabetes mellitus without complications Status: Acute Assessment and Plan: * Holding oral hypoglycemics * SSI * 06/27 FBS 104 (3) Fibromyalgia: Code(s): M79.7 - Fibromyalgia Status: Acute Assessment and Plan: * Analgesics prn * Holding buprenorphine patch (4) H/O gastric bypass: Code(s): Z98.84 - Bariatric surgery status Status: Chronic Assessment and Plan: * Continue home regimen DS: Summary Hospital Course Hospital Course: No changes, still epigastric pain and fullness after eating but similar problem since having gastric bypass surgery. Fells bloated and constipated. Requests laxative. ?She and now think that her issues began when there was a shortage of Mounjaro and she used Ozempic instead. CT abdomen/ pelvis 1. Mild lung disease in the bilateral lower lobes which could represent pneumonia, mild pulmonary edema, atelectasis, more chronic interstitial lung d isease or some combination thereof. 2. Subtle branching pattern of decreased attenuation within a region of transient hepatic attenuation difference in segment 4A of the liver. Appearance is most suspicious for segmental portal venous thrombosis with differential including local mild intrahepatic biliary ductal dilation. Correlate with liver function tests and consider further evaluation with multiphase pre and postcontrast MRI. 3. Bilateral nonobstructing nephrolithiasis. 4. Diverticulosis. 06/26 MRCP without thrombus, so heparin discontinued * Continue analgesics * EGD planned for 06/28 shows hiatal hernia * MRI without portal vein thrombosis, normal liver enzymes, mild bile duct dilation without defects- probably related to cholecystectomy status Pt ok to DC as per GI MD Time Spent with Patient Time attestation: Total time spent providing and/or coordinating discharge services:50 minutes on day of
--- NOTE | 2023-06-29 17:17 | PM.DS ---
DS: Admitting Diagnosis Discharge Date 06/29/2023 Admitting Diagnosis Worsening abdominal pain, possible portal venous thrombosis DS: Discharge Diagnosis Discharge Diagnosis (1) Epigastric abdominal pain: Code(s): R10.13 - Epigastric pain Status: Acute Assessment and Plan: Onset 3 weeks ago 06/25 CT A/P: 1. Mild lung disease in the bilateral lower lobes which could represent pneumonia, mild pulmonary edema, atelectasis, more chronic interstitial lung disease or some combination thereof. 2. Subtle branching pattern of decreased attenuation within a region of transient hepatic attenuation difference in segment 4A of the liver. Appearance is most suspicious for segmental portal venous thrombosis with differential including local mild intrahepatic biliary ductal dilation. Correlate with liver function tests and consider further evaluation with multiphase pre and postcontrast MRI. 3. Bilateral nonobstructing nephrolithiasis. 4. Diverticulosis. 06/26 MRCP without thrombus, so heparin discontinued Continue analgesics EGD planned for 06/28 shows hiatal hernia MRI without portal vein thrombosis, normal liver enzymes, mild bile duct dilation without defects- probably related to cholecystectomy status (2) Type 2 diabetes mellitus without complication, without long-term current use of insulin: Onset Date: 07/05/15 Code(s): E11.9 - Type 2 diabetes mellitus without complications Status: Acute Assessment and Plan: Holding oral hypoglycemics SSI 06/27 FBS 104 (3) Fibromyalgia: Code(s): M79.7 - Fibromyalgia Status: Acute Assessment and Plan: Analgesics prn Holding buprenorphine patch (4) H/O gastric bypass: Code(s): Z98.84 - Bariatric surgery status Status: Chronic Assessment and Plan: Continue home regimen DS: Summary Hospital Course Hospital Course: No changes, still epigastric pain and fullness after eating but similar problem since having gastric bypass surgery. Fells bloated and constipated. Requests laxative. ?She and now think that her issues began when there was a shortage of Mounjaro and she used Ozempic instead. CT abdomen/ pelvis 1. Mild lung disease in the bilateral lower lobes which could represent pneumonia, mild pulmonary edema, atelectasis, more chronic interstitial lung disease or some combination thereof. 2. Subtle branching pattern of decreased attenuation within a region of transient hepatic attenuation difference in segment 4A of the liver. Appearance is most suspicious for segmental portal venous thrombosis with differential including local mild intrahepatic biliary ductal dilation. Correlate with liver function tests and consider further evaluation with multiphase pre and postcontrast MRI. 3. Bilateral nonobstructing nephrolithiasis. 4. Diverticulosis. 06/26 MRCP without thrombus, so heparin discontinued Continue analgesics EGD planned for 06/28 shows hiatal hernia MRI without portal vein thrombosis, normal liver enzymes, mild bile duct dilation without defects- probably related to cholecystectomy status Pt ok to DC as per GI MD Time Spent with Patient Time attestation: Total time spent providing and/or coordinating discharge services:50 minutes on day of dc Exam Narrative: HEENT: sclerae nonicteric, pharyngeal mucosa pink and intact NECK: No JVD CHEST: Clear to auscultation. Normal effort. HEART: NL S1/S2, regular, no murmur ABDOMEN: BS+, soft, TENDER EPIGASTRIC TO BILATERAL UQ, NO MASS, GUARDING OR REBOUND. EXTREMITIES: No cyanosis, edema, or clubbing NEUROLOGIC: CN intact and symmetric to inspection. MUSCULOSKELETAL: Tone and strength symmetric. PSYCH: Alert. Oriented to person, place, and time. DS: Data Data Completed and Pending Pending studies at discharge: Pending at discharge 06/29/23 12:01 Surgical [PTH] Routine Labs on day of discharge: Labs from last 24 hours 06/29/23 06/29/23 06/29/23
== END 2023-06-29 17:37 | disposition home or self-care (01) | DRG 392 ==
LOC: ANHED 13:24 → ANH3MEDSUR 16:18
PROVIDERS: Internal Medicine; Internal Medicine Gastroenterology; Nurse Practitioner; Admitting Provider Internal Medicine; Emergency Provider Emergency Medicine; PCP Family Medicine; Visit Provider Family Medicine
PROC: 0DJ08ZZ Inspection of Upper Intestinal Tract, Via Natural or Artificial Opening Endoscopic (ICD-10-PCS; CPT 43235; principal; 2023-06-29 14:30)
DX: R10.13 Epigastric pain (principal); E11.9 Type 2 diabetes mellitus without complications; M79.7 Fibromyalgia; E53.8 Deficiency of other specified B group vitamins; R93.89 Abnormal findings on diagnostic imaging of other specified body structures; K44.9 Diaphragmatic hernia without obstruction or gangrene; F41.9 Anxiety disorder, unspecified; J45.909 Unspecified asthma, uncomplicated; K57.90 Diverticulosis of intestine, part unspecified, without perforation or abscess without bleeding; N20.0 Calculus of kidney; K21.9 Gastro-esophageal reflux disease without esophagitis; E03.9 Hypothyroidism, unspecified; E78.2 Mixed hyperlipidemia; F32.A Depression, unspecified; G47.33 Obstructive sleep apnea (adult) (pediatric); L40.9 Psoriasis, unspecified; F17.210 Nicotine dependence, cigarettes, uncomplicated; Z98.84 Bariatric surgery status; Z87.11 Personal history of peptic ulcer disease
CPT/HCPCS: 36415; 71046; 74177; 74183; 76376; 80053; 81001; 82607; 82746; 82948; 83036; 83690; 83735; 85025; 85610; 85730; 88305; 93005; 94640; 96361; 96365; 96366; 96375; 96376; 99285; A9270; A9577; G0378; J1170; J1644; J2405; J2704; J7030; J7120; Q9967

== ENCOUNTER 2023-07-24 07:11 | Outpatient (CLI) | payer OTHER, SELFPAY ==
--- NOTE | ~2023-07-24 | US_ITS ---
EXAMINATION: US soft tissue abdomen DATE: 07/24/2023 08:40 INDICATION: Intra-abdominal and pelvic swelling, mass and lump. TECHNIQUE: Multiple grayscale and Doppler ultrasound images of the abdomen were obtained. COMPARISON: MRCP 06/27/2023, CT abdomen and pelvis 06/26/2023, ultrasound 05/16/2023. FINDINGS: There is no abnormal mass in the patient's area of concern in left abdominal wall. IMPRESSION: 1. No abnormal mass in the patient's area of concern in left abdominal wall. The biopsy was canceled. Reviewed, dictated and finalized at location A. IMPRESSION: 1. No abnormal mass in the patient's area of concern in left abdominal wall. Th e biopsy was canceled.
== END 2023-07-24 07:12 | disposition home or self-care (01) ==
PROVIDERS: PCP Family Medicine; Visit Provider Family Medicine
DX: R19.09 Other intra-abdominal and pelvic swelling, mass and lump (principal)
CPT/HCPCS: 76705

== ENCOUNTER 2023-09-14 15:33 | Outpatient (CLI) | payer OTHER, SELFPAY ==
[2023-09-14 15:54] LABS: Basophils Absolute Auto 0.1 K/mm3 (0.0-0.1); Basophils Percent Auto 0.5 % (0.2-1.2); Eosinophils Absolute Auto 0.1 K/mm3 (0-0.3); Eosinophils Percent Auto 1.2 % (0-4.4); Hemoglobin 15.6 g/dL (12.0-15.0); Immature Granulocyte Absolute 0.04 K/mm3 (0.00-0.031); Immature Granulocyte Percent A 0.3 % (0-0.5); Lymphocytes Absolute Auto 3.92 K/mm3 (0.9-3.2); Lymphocytes Percent Auto 33.8 % (18.3-44.2); Mean Corpuscular HGB Conc 31.2 g/dl (32-36); Mean Corpuscular Hemoglobin 27.6 pg (26-34); Mean Corpuscular Volume 88.3 fl (80-100); Monocytes Absolute Auto 0.6 K/mm3 (0.1-0.6); Monocytes Percent Auto 5.2 % (2.6-8.5); Neutrophils Absolute Auto 6.9 K/mm3 (1.3-6.7); Platelet Count Result 401 k/mm3 (150-375); Red Blood Count 5.66 M/mm3 (4.2-5.4); Red Cell Distribution Width 14.9 % (11.5-14.5); White Blood Count 11.6 K/mm3 (4.5-10.0)
[2023-09-14 16:58] LABS: Iron 43 ug/dL (37-170)
[2023-09-14 17:05] LABS: Alanine Aminotransferase 24 U/L (6-35); Albumin Level 4.6 g/dL (3.5-5.1); Alkaline Phosphatase 221 U/L (38-126); Anion Gap 11 mmol/L (4-12); Aspartate Amino Transferase 30 U/L (14-36); Bilirubin,Total 0.4 mg/dL (0.2-1.3); Blood Urea Nitrogen 11 mg/dL (7-17); Calcium 9.7 mg/dL (8.4-10.2); Carbon Dioxide 27 mmol/L (22-30); Chloride 98 mmol/L (98-107); Estimated Glomerular Filt Rate > 60; Glucose 98 mg/dL (65-110); Lactate Dehydrogenase 147 U/L (120-246); Potassium 3.7 mmol/L (3.4-5.0); Sodium 136 mmol/L (137-145)
[2023-09-14 17:07] LABS: Percent Iron Saturation 14 % (20-50)
[2023-09-14 18:13] LABS: Folic Acid > 20.0 ng/mL (2.76->20); Vitamin B12 > 1000.0 pg/mL (239-931)
[2023-09-17 13:23] LABS: Soluble Transferrin Receptor 1.53 mg/L (0.76-1.76)
[2023-09-18 00:53] LABS: Methylmalonic Acid 101 nmol/L (69-390)
== END 2023-09-14 15:34 | disposition home or self-care (01) ==
LOC: ANHLAB 15:35
PROVIDERS: Nurse Practitioner Family; PCP Family Medicine; Visit Provider Internal Medicine Hematology & Oncology
DX: D50.9 Iron deficiency anemia, unspecified (principal)
CPT/HCPCS: 36415; 80053; 82607; 82728; 82746; 83540; 83550; 83615; 83921; 84238; 85025

== ENCOUNTER 2023-09-19 07:41 | Outpatient (NON) | payer OTHER, SELFPAY ==
[2023-09-19 12:36] LABS: Toxigenic C. Diff NEGATIVE (NEGATIVE)
== END 2023-09-19 07:42 | disposition home or self-care (01) ==
LOC: ANHLAB 07:42
PROVIDERS: PCP Family Medicine; Visit Provider Physician Assistant Medical
DX: R19.7 Diarrhea, unspecified (principal)
CPT/HCPCS: 87045; 87427; 87449; 87493

== ENCOUNTER 2023-10-09 11:55 | Outpatient (CLI) | payer OTHER, SELFPAY ==
[2023-10-09 12:40] LABS: Basophils Percent Auto 0.4 % (0.2-1.2); Eosinophils Absolute Auto 0.1 K/mm3 (0-0.3); Hematocrit 43.6 % (37.0-47.0); Hemoglobin 13.9 g/dL (12.0-15.0); Immature Granulocyte Absolute 0.04 K/mm3 (0.00-0.031); Immature Granulocyte Percent A 0.4 % (0-0.5); Lymphocytes Absolute Auto 3.28 K/mm3 (0.9-3.2); Lymphocytes Percent Auto 29.9 % (18.3-44.2); Mean Corpuscular HGB Conc 31.9 g/dl (32-36); Mean Corpuscular Hemoglobin 28.4 pg (26-34); Mean Platelet Volume 11.1 fl (7.4-10.4); Monocytes Absolute Auto 0.6 K/mm3 (0.1-0.6); Monocytes Percent Auto 5.7 % (2.6-8.5); Neutrophils Absolute Auto 6.9 K/mm3 (1.3-6.7); Neutrophils Percent Auto 62.6 % (45.5-73.1); Platelet Count Result 337 k/mm3 (150-375); Red Cell Distribution Width 15.8 % (11.5-14.5)
[2023-10-09 12:51] LABS: Anion Gap 7 mmol/L (4-12); Blood Urea Nitrogen 9 mg/dL (7-17); CRP 1.3 mg/dL (<1.0); Calcium 9.2 mg/dL (8.4-10.2); Carbon Dioxide 28 mmol/L (22-30); Chloride 98 mmol/L (98-107); Estimated Glomerular Filt Rate > 60; Glucose 103 mg/dL (65-110); Potassium 3.6 mmol/L (3.4-5.0); Sodium 133 mmol/L (137-145)
[2023-10-09 13:00] LABS: D Dimer 0.53 ug/mL (<0.48)
== END 2023-10-09 11:56 | disposition home or self-care (01) ==
LOC: ANHLAB 11:57
PROVIDERS: PCP Family Medicine; Visit Provider Family Medicine
DX: R07.9 Chest pain, unspecified (principal); E87.6 Hypokalemia; R10.9 Unspecified abdominal pain
CPT/HCPCS: 36415; 80048; 85025; 85380; 86140

== ENCOUNTER 2023-10-21 06:36 | Outpatient (CLI) | payer OTHER, SELFPAY ==
--- NOTE | ~2023-10-21 | CT_ITS ---
Clinical Indication: Chest pain CT Scan of the Chest with Contrast: Technique: Contiguous sections were acquired throughout the chest after intravenous administration of 100 cc of Omnipaque 350. Dose reduction technique was used on this scan by utilizing automated expos ure control and iterative reconstruction technique. The dose-length product (DLP) was 320.34 mGy-cm. Findings: There is no evidence of any significant mediastinal, hilar or axillary lymphadenopathy. There is no f illing defect in the pulmonary arterial tree to suggest pulmonary embolus. There is no evidence of ao rtic dissection or aneurysm. There is no evidence of pleural or pericardial effusion. There is minimal patchy ground glass opacity in the right upper lobe. There is minimal groundglass op acity at the lingula and right middle lobe. Images through the upper abdomen reveal no abnormalities. Impression: No evidence of pulmonary embolus, aortic dissection, or aortic aneurysm. Minimal patchy ground glass opacities, as above. Findings suggest atypical infection/pneumonia. Reviewed, dictated and finalized at [facility]. Impression: No evidence of pulmonary embolus, aortic dissection, or aortic aneurysm. Minimal patchy ground glass opacities, as above. Findings suggest atypical infe ction/pneumonia.
== END 2023-10-21 06:37 | disposition home or self-care (01) ==
PROVIDERS: PCP Family Medicine; Visit Provider Family Medicine
DX: R07.9 Chest pain, unspecified (principal); R79.89 Other specified abnormal findings of blood chemistry
CPT/HCPCS: 71275; Q9967

== ENCOUNTER 2023-11-10 15:07 | Outpatient (CLI) | payer OTHER, SELFPAY ==
--- NOTE | ~2023-11-10 | XR_ITS ---
EXAMINATION: XR chest 2V DATE: 11/10/2023 15:27 INDICATION: Pneumonia. TECHNIQUE: PA and lateral views of the chest were obtained. COMPARISON: Chest radiograph dated 06/26/[address] dated 10/21/2023 FINDINGS: The lungs are clear with no focal airspace opacities, pulmonary edema, pleural effusion or pneumothor ax. The cardiomediastinal silhouette is normal. Surgical clips in the epigastric region. 1.3 cm left renal stone projecting over the L2 vertebral body on the lateral projection. Mild thoracic kyphosis w ith mild to moderate spondylosis. IMPRESSION: 1. No acute cardiopulmonary disease. 2. Large left renal stone. Reviewed, dictated and finalized at location B.
== END 2023-11-10 15:08 | disposition home or self-care (01) ==
LOC: ANHIMG 15:12
PROVIDERS: PCP Family Medicine; Visit Provider Student in an Organized Health Care Education/Training Program
DX: J18.9 Pneumonia, unspecified organism (principal); N20.0 Calculus of kidney
CPT/HCPCS: 71046

== ENCOUNTER 2023-11-14 07:31 | Outpatient (NON) | payer OTHER, SELFPAY | END 2023-11-14 07:32 | disposition home or self-care (01) | LOC: ANHLAB 07:32 | PROVIDERS: PCP Family Medicine; Visit Provider Student in an Organized Health Care Education/Training Program | DX: J18.9 Pneumonia, unspecified organism (principal) | CPT/HCPCS: 87070; 87205 ==

== ENCOUNTER 2024-01-04 07:31 | Outpatient (CLI) | payer OTHER, SELFPAY ==
[2024-01-04 08:16] LABS: Basophils Absolute Auto 0.1 K/mm3 (0.0-0.1); Basophils Percent Auto 0.9 % (0.2-1.2); Eosinophils Absolute Auto 0.2 K/mm3 (0-0.3); Eosinophils Percent Auto 1.7 % (0-4.4); Hematocrit 46.6 % (37.0-47.0); Hemoglobin 14.4 g/dL (12.0-15.0); Immature Granulocyte Absolute 0.04 K/mm3 (0.00-0.031); Immature Granulocyte Percent A 0.4 % (0-0.5); Lymphocytes Absolute Auto 3.55 K/mm3 (0.9-3.2); Lymphocytes Percent Auto 34.1 % (18.3-44.2); Mean Corpuscular HGB Conc 30.9 g/dl (32-36); Mean Corpuscular Hemoglobin 27.6 pg (26-34); Mean Corpuscular Volume 89.3 fl (80-100); Mean Platelet Volume 11.3 fl (7.4-10.4); Monocytes Absolute Auto 0.5 K/mm3 (0.1-0.6); Monocytes Percent Auto 4.9 % (2.6-8.5); Platelet Count Result 523 k/mm3 (150-375); Red Blood Count 5.22 M/mm3 (4.2-5.4); Red Cell Distribution Width 14.3 % (11.5-14.5); White Blood Count 10.4 K/mm3 (4.5-10.0)
[2024-01-04 08:22] LABS: Add Urine Microscopic? YES; Appearance Urine Clear (Clear); Bacteria Urine None Seen /hpf; Bilirubin Urine Negative (Negative); Blood Urine Non-Hemolyzed Trace (Negative); Color Urine Yellow (Yellow); Glucose Urine UA 2+ mg/dL (Negative); Ketones Urine Negative (Negative); Leukocyte Esterase Ur 1+ LEU/UL (Negative); Nitrate Urine Negative (Negative); Non Pathogenic Casts 0-2; Protein Urine Negative (Negative); Specific Grav Ur 1.016 (1.001-1.035); Squamous Epithelial Cell Urine Occasional /hpf (Few); Urobilinogen Urine 0.2 mg/dL (<2.0); pH Urine 6.5 (5.0-9.0)
[2024-01-04 08:40] LABS: Alanine Aminotransferase 25 U/L (6-35); Albumin Level 4.4 g/dL (3.5-5.1); Alkaline Phosphatase 142 U/L (38-126); Anion Gap 8 mmol/L (4-12); Aspartate Amino Transferase 35 U/L (14-36); Bilirubin,Total 0.4 mg/dL (0.2-1.3); Blood Urea Nitrogen 15 mg/dL (7-17); Calcium 9.4 mg/dL (8.4-10.2); Carbon Dioxide 28 mmol/L (22-30); Chloride 98 mmol/L (98-107); Cholesterol 197 mg/dL (0-200); Creatine Kinase 24 U/L (30-135); Estimated Glomerular Filt Rate > 60; Glucose 111 mg/dL (65-110); HDL Direct 44 mg/dL; Potassium 3.6 mmol/L (3.4-5.0); Sodium 134 mmol/L (137-145); Triglycerides 173 mg/dL (<150)
[2024-01-04 08:45] LABS: Iron 73 ug/dL (37-170)
[2024-01-04 08:51] LABS: LDL Cholesterol Direct 110 mg/dL
[2024-01-04 08:54] LABS: Percent Iron Saturation 21 % (20-50)
[2024-01-04 08:56] LABS: Hemoglobin A1C 6.2 % (<5.7)
[2024-01-04 08:59] LABS: Erythrocyte Sedimentation Rate 8 mm/hr (0-20)
[2024-01-04 09:27] LABS: Vitamin B12 > 1000.0 pg/mL (239-931)
[2024-01-04 13:41] LABS: Vitamin D 25 Hydroxy 78.7 ng/mL
== END 2024-01-04 07:32 | disposition home or self-care (01) ==
LOC: ANHLAB 07:31
PROVIDERS: PCP Family Medicine; Visit Provider Family Medicine
DX: D72.829 Elevated white blood cell count, unspecified (principal); N12 Tubulo-interstitial nephritis, not specified as acute or chronic; E55.9 Vitamin D deficiency, unspecified; E53.8 Deficiency of other specified B group vitamins; E03.9 Hypothyroidism, unspecified; E78.2 Mixed hyperlipidemia; E61.1 Iron deficiency; E11.9 Type 2 diabetes mellitus without complications; M79.10 Myalgia, unspecified site
CPT/HCPCS: 36415; 80053; 80061; 81001; 82306; 82550; 82607; 82728; 83036; 83540; 83550; 84443; 85025; 85652; 87040; 87086

== ENCOUNTER 2024-01-11 12:35 | Outpatient (CLI) | payer OTHER, SELFPAY ==
--- NOTE | ~2024-01-11 | DEXA_ITS ---
Bone Density Report Name: MAXIMINO ESTRADA Age: 63 Sex: Female Ethnicity: White Date of : 1960 Indication: postmenopausal; screening for osteoporosis; parental hip fracture; asthma or emphysema; Referring Provider: MADISON, SANDEE Study: Bone densitometry was performed. Exam Date: January 11, 2024 Accession number: [id number] Bone Density: Region BMD T-score Z-score Classification AP Spine(L1-L4) 0.994 -0.5 1.2 Normal Femoral Neck (Left) 0.692 -1.4 0.1 Osteopenia Total Hip (Left) 0.840 -0.8 0.4 Normal Femoral Neck (Right) 0.718 -1.2 0.3 Osteopenia Total Hip (Right) 0.853 -0.7 0.5 Normal Total Hip Mean 0.846 -0.8 0.5 Normal World Health Organization criteria for BMD impression classify patients as: Normal (T-score at or above -1.0), Osteopenia (T-score between -1.0 and -2.5), or Osteoporosis (T-score at or below -2.5). 10-year Fracture Risk(1): Major Osteoporotic Fracture 16% Hip Fracture 1.4% Reported Risk Factors: [place] (), Neck BMD=0.692, BMI=29.4, parental fracture, smoking (1) FRAX(R) Version 3.08. Fracture probability calculated for an untreated patient. Fracture probability may be lower if the patient has received treatment. Clinical Information Provided by Patient: Parent has had a hip fracture Smokes Has used the following medications: HRT (i.e. estrogen/hormone therapy), Vitamin D, Calcium Has the following medical conditions: Asthma or Emphysema Patient maximum height was 62.0 No regular weight bearing exercise Drinks caffeinated beverages Onset of menses at age 12 Number of children 0 Impression: The patient has low bone mass, based on the Left Femoral Neck T-score. The patient has an estimated ten-year risk of hip fracture of 1.4% and an estimated ten-year risk of major fracture of 16%, based on the WHO FRAX algorithm. The patient has risk factors, including: parental hip fracture, smoking. Discussion: BONE DENSITY IS LOW AT ONE OR MORE SKELETAL SITES. This patient's lowest T-score is low at one or more skeletal sites. It meets the World Health Organization's (WHO) criteria for ?low bone mass? (T-score between -1.0 and -2.5). The patient's 10-year risk of fracture as calculated by FRAX is less than the threshold where pharmacological therapy is recommended by the National Osteoporosis Foundation (NOF). However, all treatment decisions require clinical judgment and consideration of individual patient factors, including patient preferences, comorbidities, previous drug use, risk factors not captured in the FRAX model (e.g., frailty, falls, vitamin D deficiency, increased bone turnover, interval significant decline in bone density) and possible under or overestimation of fracture risk by FRAX. The patient should follow a healthful lifestyle (good nutrition with adequate calcium and vitamin D, and appropriate weight-bearing exercise). Follow-Up: Consider repeating this study in 2 to 3 years to reassess this patient's status, or sooner if there is some new clinical indication. Reported by: MIRTHA on 01/11/2024 1:05:00 PM. Reviewed, dictated and finalized at location [facility] ARNDT
== END 2024-01-11 12:36 | disposition home or self-care (01) ==
LOC: ANHIMG 12:36
PROVIDERS: PCP Family Medicine; Visit Provider Nurse Practitioner
DX: M85.89 Other specified disorders of bone density and structure, multiple sites (principal); Z78.0 Asymptomatic menopausal state
CPT/HCPCS: 77080

== ENCOUNTER 2024-04-21 16:09 | Outpatient (CLI) | payer OTHER, SELFPAY | END 2024-04-21 16:10 | disposition home or self-care (01) | LOC: ANHIMG 16:12 | PROVIDERS: PCP Family Medicine; Visit Provider Nurse Practitioner | DX: Z12.31 Encounter for screening mammogram for malignant neoplasm of breast (principal) | CPT/HCPCS: 77063; 77067 ==